=== PATIENT | male | born 1945 | race African-American/Black ===

== ENCOUNTER 2017-07-16 23:43 | Emergency (ER) | payer OTHER, MEDICAID ==
[~2017-07-16] VITALS: Ht 165.1 cm; Wt 70.0 kg
[2017-07-16 23:47] VITALS: BP 207/98; PULSE 101; RESP 18; TEMP 97.5; O2SAT 99
[2017-07-17] MEDS ORDERED: GLIP10TA6 PO (00:25)
[2017-07-17] MEDS ORDERED: OMEP40CA2 (00:25)
[2017-07-17] MEDS ORDERED: AMLO2.5T PO (00:25)
[2017-07-17] MEDS ORDERED: ATOR40TA16 PO (00:25)
[2017-07-17] MEDS ORDERED: ASPI81CH7 CHEW (00:25)
[2017-07-17] MEDS ORDERED: AMMO12LO TOPICAL (00:25)
[2017-07-17] MEDS ORDERED: FLUT50SP EACH NARE (00:25)
[2017-07-17] MEDS ORDERED: METF500T PO (00:25)
[2017-07-17] MEDS ORDERED: CLOP75TA PO (00:25)
--- NOTE | 2017-07-17 01:00 | RADRPT ---
EXAM DATE/TIME: 07/17/2017 00:41 [place] COMPARISON: No previous studies available for comparison. INDICATIONS : Neck pain for two months. No known injury. MEDICAL HISTORY : None. SURGICAL HISTORY : None. ENCOUNTER: Initial ACUITY: 2 months PAIN SCORE: 8/10 LOCATION: cevical spine. FINDINGS: 4 views of cervical spine show straightening of the cervical spine. Disc space narrowing and anterior osteophyte production at C4-C5, C5-C6, and C6-C7. No fracture or dislocation. Paraspinal soft tissue s are unremarkable. Carotid artery atherosclerotic calcifications are noted. CONCLUSION: 1. Degenerative changes. 2. Carotid artery atherosclerotic calcifications. Jadon Flores Jr., MD on July 17, 2017 at 0:58 Board Certified Radiologist. This report was verified electronically.
[2017-07-17] MEDS ORDERED: NORC5TAB PO (01:12)
[2017-07-17] MEDS ORDERED: CYCL10TA PO (01:12)
[2017-07-17] MEDS ORDERED: CYCLOBENZAPRINE HCL 10 MG TAB PO ONE (01:15)
[2017-07-17] MEDS ORDERED: ACETAMINOPHEN/HYDROcodone 325 MG/5 MG TAB PO ONE (01:15)
--- NOTE | 2017-07-17 01:21 | PD ---
HPI Chief Complaint: Back/ Neck Pain or Injury Time Seen by Provider: 00:26 Travel History International Travel<30 days: No Contact w/Intl Traveler<30days: No Traveled to known affect area: No History of Present Illness HPI 71-year-old black male presents emergency department we will complains of neck pain. He states that he feels that he probably slept wrong on his neck about a month ago. He saw his doctor approximately 3 weeks ago regarding this. She had placed him on an anti-inflammatory which has not helped. He states the pain is becoming more intense. Worse with bending and movement. He denies any focal numbness, tingling or weakness. He has had no recent trauma or illness. Symptoms are moderate. No alleviating factor. PFSH Past Medical History High Cholesterol: Yes Diabetes: Yes Patient Takes Glucophage: Yes (METFORMIN) Hypertension: Yes Tetanus Vaccination: < 5 Years Past Surgical History Narrative Surgical Lower leg stents for PVD Other Surgery: Yes ("LEG SURGERY") Social History Alcohol Use: Yes Tobacco Use: No Substance Use: No Allergies-Medications (Allergen,Severity, Reaction): Coded Allergies: lisinopril (Unverified Adverse Reaction, Severe, Swelling, 07/16/17) losartan (Unverified Adverse Reaction, Intermediate, Diarrhea, 07/16/17) Uncoded Allergies: ANTIFUNGAL CREAM (Adverse Reaction, Intermediate, Rash, 07/16/17) Reported Meds & Prescriptions Reported Meds & Active Scripts Active Flexeril (Cyclobenzaprine HCl) 10 Mg Tab 10 Mg PO TID [place] (Hydrocodone-Acetaminophen) 5 Mg-325 Mg Tab 1 Tab PO Q8HR PRN 3 Days Reported Fluticasone Nasal [place] 50 Mcg/Act Naspr 50 Mcg EACH NARE BID 50 mcg/spray Ammonium Lactate (Lactic Acid (Ammonium Lactate)) 12% Lotn 1 Applic TOPICAL ONCE Aspirin Children's (Aspirin) 81 Mg Chew 81 Mg CHEW DAILY Clopidogrel (Clopidogrel Bisulfate) 75 Mg Tab 75 Mg PO DAILY Amlodipine (Amlodipine Besylate) 2.5 Mg Tab 2.5 Mg PO DAILY Atorvastatin (Atorvastatin Calcium) 40 Mg Tab 40 Mg PO HS Metformin (Metformin HCl) 500 Mg Tab 500 Mg PO BIDPC Glipizide 10 Mg Tab 10 Mg PO BIDAC Take 30 minutes before a meal Omeprazole 40 Mg Cap 40 Mg DAILY Review of Systems Except as stated in HPI: all other systems reviewed are Neg Physical Exam Narrative GENERAL: Well-developed, well-nourished in no apparent distress. Nontoxic appearing. HEAD: Normocephalic, atraumatic. EYES: Pupils equal round and reactive. Extraocular motions intact. No scleral icterus. No injection or drainage. ENT: Nose clear. Throat without erythema, tonsillar hypertrophy or exudate. Uvula midline. Airway patent. NECK: Trachea midline. Supple, patient has right paraspinal muscle tenderness with mild spasm. Slight decreased range of motion due to pain. No central bony tenderness.. CARDIOVASCULAR: Regular rate and rhythm without murmurs, gallops, or rubs. RESPIRATORY: Clear to auscultation. Breath sounds equal bilaterally. No wheezes , rales, or rhonchi. GASTROINTESTINAL: Abdomen soft, non-tender, nondistended. No hepato-splenomegaly , or palpable masses. No guarding. EXTREMITIES: No clubbing, cyanosis, or edema. No joint tenderness. BACK: Nontender without deformity. No flank tenderness. NEUROLOGICAL: Awake, alert and oriented x 3 .Cranial nerves grossly intact. Motor and sensory grossly within normal limits. Normal speech. Data Data Last Documented VS Vital Signs Date Time Temp Pulse Resp B/P (MAP) Pulse Ox O2 Delivery O2 Flow Rate FiO2 07/17/17 00:08 20 07/16/17 23:47 97.5 101 207/98 (134) 99 Orders Orders Spine, Cervical - Ltd (Ap&Lat) (07/17/17 00:32) Acetamin-Hydrocod 325-5 Mg ([place] 5-325 (07/17/17 01:15) Cyclobenzaprine (Flexeril) (07/17/17 01:15) [facility] Medical Decision Making Medical Screen Exam Complete: Yes Emergency Medical Condition: Yes Medical Record Reviewed: Yes Interpretation(s) Last 24 hours Impressions Cervical Spine X-Ray 07/17/17 0032 Signed Impressions: Service Date/Time: July 00:41 - CONCLUSION: 1. Degenerative changes. 2. Carotid artery atherosclerotic calcifications. Jadon Flores Jr., MD Differential Diagnosis MDM: High Differential diagnoses: Carotid artery dissection,Fracture, sprain, strain, HNP , nerve or vascular injury Narrative Course X-ray shows degenerative changes as well as calcifications in his carotid arteries. Patient is made aware the x-ray findings including the calcifications. Patient has known PVD. Patient was given [place] 5 mg and Flexeril 10 mg. This is acute cervical strain with spasm, carotid artery calcifications Diagnosis Primary Impression: Acute cervical strain with spasm Additional Impression: Carotid artery calcifications Patient Instructions: General Instructions, Narcotic given in the ED Additional Instructions: Rest. Ice or heat whichever seems to help the best. Flexeril and [place]. Follow-up with a primary care doctor in 2-3 days. Consider physical therapy Return to the ER for emergencies. Med/Other Pt SpecificInfo: Prescription(s) given Scripts Cyclobenzaprine (Flexeril) 10 Mg Tab 10 MG PO TID for Muscle Spasm, #21 TAB 0 Refills Prov: Nikhil Felton MD 07/17/17 Hydrocodone-Acetaminophen ([place]) 5 Mg-325 Mg Tab 1 TAB PO Q8HR Y for PAIN for 3 Days, TAB 0 Refills Prov: Nikhil Felton MD 07/17/17 Disposition: 01 DISCHARGE HOME Condition: Stable [place] Jul 17, 2017 01:21
[2017-07-17 01:22] VITALS: BP 196/93; PULSE 93; RESP 20; O2SAT 99
== END 2017-07-17 01:59 | disposition home or self-care (01) ==
LOC: NEPD 23:43
DX: S16.1XXA Strain of muscle, fascia and tendon at neck level, initial encounter (principal); M62.838 Other muscle spasm; I65.29 Occlusion and stenosis of unspecified carotid artery; I73.9 Peripheral vascular disease, unspecified; E11.9 Type 2 diabetes mellitus without complications; I10 Essential (primary) hypertension; E78.00 Pure hypercholesterolemia, unspecified; Z79.84 Long term (current) use of oral hypoglycemic drugs; X58.XXXA Exposure to other specified factors, initial encounter
CPT/HCPCS: 72040; 99283

== ENCOUNTER 2017-10-03 21:08 | Inpatient (IN) | payer OTHER, MEDICAID, MEDICARE ==
[~2017-10-03] VITALS: Ht 165.1 cm; Wt 70.5 kg
[~2017-10-03 21:08] MED LIST: AMLO2.5T PO; AMMO12LO TOPICAL; ASPI81CH7 CHEW; ATOR40TA16 PO; CLOP75TA PO; CYCL10TA PO; FLUT50SP EACH NARE; GLIP10TA6 PO; METF500T PO; NORC5TAB PO; OMEP40CA2
[2017-10-03 21:12] VITALS: BP 169/79; PULSE 91; RESP 20; TEMP 98; O2SAT 100
[2017-10-03 21:19] VITALS: BP 182/86; PULSE 87; RESP 18; O2SAT 99
[2017-10-03 21:25] VITALS: O2SAT 99
--- NOTE | 2017-10-03 21:29 | PD ---
HPI Chief Complaint: Neuro Symptoms/ Deficits Time Seen by Provider: 21:24 Travel History International Travel<30 days: No Contact w/Intl Traveler<30days: No Traveled to known affect area: No History of Present Illness HPI 72-year-old male patient with history of previous carotid stenosis, right femoral stent, hypertension, presents to the ER today because he started having slurring of his speech, left facial droop, and limping on his left side according to his today. She noticed that at 11 AM it seemed to have gotten better and then got worse again this evening according to her grandson. He denies issues currently, denies any headaches, chest pains, trouble breathing , or other issues. Modifying Factors: None Associated Signs & Symptoms: Limping, facial droop, slurred speech Risk Factors: Hypertension, carotid stenosis PFSH Past Medical History High Cholesterol: Yes Diabetes: Yes Patient Takes Glucophage: No Diminished Hearing: No Hypertension: Yes Immunizations Current: Yes Tetanus Vaccination: Unknown Influenza Vaccination: Yes Past Surgical History Other Surgery: Yes ("LEG SURGERY") Social History Alcohol Use: Yes Tobacco Use: No Substance Use: No Allergies-Medications (Allergen,Severity, Reaction): Coded Allergies: lisinopril (Unverified Adverse Reaction, Severe, Swelling, 10/03/17) losartan (Unverified Adverse Reaction, Intermediate, Diarrhea, 10/03/17) Uncoded Allergies: ANTIFUNGAL CREAM (Adverse Reaction, Intermediate, Rash, 07/16/17) Reported Meds & Prescriptions Reported Meds & Active Scripts Active Reported Fluticasone Nasal [place] 50 Mcg/Act Naspr 50 Mcg EACH NARE BID 50 mcg/spray Ammonium Lactate (Lactic Acid (Ammonium Lactate)) 12% Lotn 1 Applic TOPICAL ONCE Aspirin Children's (Aspirin) 81 Mg Chew 81 Mg CHEW DAILY Clopidogrel (Clopidogrel Bisulfate) 75 Mg Tab 75 Mg PO DAILY Amlodipine (Amlodipine Besylate) 2.5 Mg Tab 2.5 Mg PO DAILY Atorvastatin (Atorvastatin Calcium) 40 Mg Tab 40 Mg PO HS Metformin (Metformin HCl) 500 Mg Tab 500 Mg PO BIDPC Glipizide 10 Mg Tab 10 Mg PO BIDAC Take 30 minutes before a meal Omeprazole 40 Mg Cap 40 Mg DAILY Review of Systems ROS Limitations: Poor Historian Except as stated in HPI: all other systems reviewed are Neg Physical Exam Narrative GENERAL: Well-developed elderly -Thai male patient currently and mild distress. Awake and oriented 3. SKIN: Focused skin assessment warm/dry. HEAD: Atraumatic. Normocephalic. EYES: Pupils equal and round. No scleral icterus. No injection or drainage. ENT: No nasal bleeding or discharge. Mucous membranes pink and moist. NECK: Trachea midline. No JVD. CARDIOVASCULAR: Regular rate and rhythm. No murmur appreciated. RESPIRATORY: No accessory muscle use. Clear to auscultation. Breath sounds equal bilaterally. GASTROINTESTINAL: Abdomen soft, non-tender, nondistended. Hepatic and splenic margins not palpable. MUSCULOSKELETAL: No obvious deformities. No clubbing. No cyanosis. No edema. NEUROLOGICAL: Awake and alert. Left facial droop, left leg weakness, no obvious upper extremity drift. PSYCHIATRIC: Appropriate mood and affect; insight and judgment normal. Data Data Last Documented VS Vital Signs Date Time Temp Pulse Resp B/P (MAP) Pulse Ox O2 Delivery O2 Flow Rate FiO2 10/03/17 22:28 88 17 191/88 (122) 97 Room Air 10/03/17 21:12 98.0 Orders Orders Electrocardiogram (10/03/17 21:24) Complete Blood Count With Diff (10/03/17 21:24) Comprehensive Metabolic Panel (10/03/17 21:24) Prothrombin Time / Inr (Pt) (10/03/17 21:24) Act Partial Throm Time (Ptt) (10/03/17 21:24) Chest, Single Ap (10/03/17 21:24) Ct Brain W/O Iv Contrast(Rout) (10/03/17 21:24) Blood Glucose (10/03/17 21:24) Ecg Monitoring (10/03/17 21:24) Iv Access Insert/Monitor (10/03/17 21:24) Oximetry (10/03/17 21:24) Sodium Chloride 0.9% Flush (Ns Flush) (10/03/17 21:30) Aspirin (Aspirin) (10/03/17 21:45) Labs Laboratory Tests Test 10/03/17 21:28 White Blood Count 8.7 TH/MM3 Red Blood Count 4.39 MIL/MM3 Hemoglobin 13.1 GM/DL Hematocrit 38.3 % Mean Corpuscular Volume 87.3 FL Mean Corpuscular Hemoglobin 29.9 PG Mean Corpuscular Hemoglobin Concent 34.3 % Red Cell Distribution Width 15.6 % Platelet Count 262 TH/MM3 Mean Platelet Volume 8.1 FL Neutrophils (%) (Auto) 68.8 % Lymphocytes (%) (Auto) 22.4 % Monocytes (%) (Auto) 7.1 % Eosinophils (%) (Auto) 1.4 % Basophils (%) (Auto) 0.3 % Neutrophils # (Auto) 6.0 TH/MM3 Lymphocytes # (Auto) 2.0 TH/MM3 Monocytes # (Auto) 0.6 TH/MM3 Eosinophils # (Auto) 0.1 TH/MM3 Basophils # (Auto) 0.0 TH/MM3 CBC Comment DIFF FINAL Differential Comment Prothrombin Time 10.7 SEC Prothromb Time International Ratio 1.1 RATIO Activated Partial Thromboplast Time 27.5 SEC Blood Urea Nitrogen 18 MG/DL Creatinine 0.93 MG/DL Random Glucose 85 MG/DL Total Protein 7.6 GM/DL Albumin 3.9 GM/DL Calcium Level 9.2 MG/DL Alkaline Phosphatase 114 U/L Aspartate Amino Transf (AST/SGOT) 13 U/L Alanine Aminotransferase (ALT/SGPT) 26 U/L Total Bilirubin 0.3 MG/DL Sodium Level 138 MEQ/L Potassium Level 3.6 MEQ/L Chloride Level 102 MEQ/L Carbon Dioxide Level 28.0 MEQ/L Anion Gap 8 MEQ/L Estimat Glomerular Filtration Rate 97 ML/MIN MDM Medical Decision Making Medical Screen Exam Complete: Yes Emergency Medical Condition: Yes Medical Record Reviewed: Yes Interpretation(s) EKG shows normal sinus rhythm at a rate of 86 bpm. LVH. No signs of acute ST elevations or depressions. Laboratory Tests Test 10/03/17 21:28 Red Blood Count 4.39 MIL/MM3 (4.50-5.90) Hematocrit 38.3 % (39.0-51.0) Aspartate Amino Transf (AST/SGOT) 13 U/L (15-37) Last [address] 10/03/172123 Signed Impressions: CONCLUSION: 1. No acute hemorrhage or mass effect. 2. 8 mm low-attenuation area in the left basal ganglia most consistent with an area of infarction which may be acute to subacute. This could be further evalu ated with MRI imaging. 3. Atrophy and chronic small vessel ischemic changes. Chest X-Ray 10/03/172123 Signed Impressions: CONCLUSION: No acute cardiopulmonary abnormality is identified. Differential Diagnosis CVA versus Hernandez's palsy versus other acute intracranial processes versus electrolyte abnormalities Narrative Course Patient has significant left-sided symptoms and facial droop concerning for CVA. CAT scan is also indicative of CVA. At this point, patient had been given aspirin. He is well beyond TPA window. Case was discussed with Dr. Yun for admission to hospitalist service. Diagnosis Primary Impression: CVA (cerebral vascular accident) Admitting Information Admitting Physician Requests: it Gracie Najera MD Oct 03, 2017 21:29
[2017-10-03] MEDS ORDERED: SODIUM CHLORIDE 0.9% FLUSH 10 ML FLUSH IV FLUSH PRN (21:30)
--- NOTE | 2017-10-03 21:41 | RADRPT ---
EXAM DATE: 10/03/2017 9:36 PM EDT AGE/SEX: 72 years / Male INDICATIONS: Generalized weakness, slurred speech, hallucinating. CLINICAL DATA: This is the patient's initial encounter. Patient reports that signs and symptoms have been present for 1 day and indicates a pain score of 0/10. MEDICAL/SURGICAL HISTORY: Hypertension. Diabetes. None. RADIATION DOSE: 56.35 CTDI (mGy) COMPARISON: No prior [place] exams available for comparison. TECHNIQUE: CT of the head without contrast. Using automated exposure control and adjustment of the mA and/or kV according to patient size, radiation dose was kept as low as reasonably achievable to ob tain optimal diagnostic quality images. FINDINGS: Cerebrum: The ventricles are normal for age with mild to moderate atrophic change. Chronic small ves bernadine ischemic changes are noted with lucency in the deep white matter. There is an area of decreased a ttenuation in the left basal ganglia as well measuring up to approximately 8 to 9 mm. No evidence of midline shift, mass lesion, hemorrhage or acute infarction. No extraaxial fluid collections are seen . Posterior Fossa: The cerebellum and brainstem are intact. The 4th ventricle is midline. The cerebe llopontine angle is unremarkable. Extracranial: The visualized portion of the orbits is intact. Skull: The calvaria is intact. No evidence of skull fracture. CONCLUSION: 1. No acute hemorrhage or mass effect. 2. 8 mm low-attenuation area in the left basal ganglia most consistent with an area of infarction wh ich may be acute to subacute. This could be further evaluated with MRI imaging. 3. Atrophy and chronic small vessel ischemic changes. Electronically signed by: Corby Pham MD 10/03/2017 9:40 PM EDT
[2017-10-03] MEDS ORDERED: ASPIRIN 325 MG TAB PO ONE (21:45)
--- NOTE | 2017-10-03 21:50 | RADRPT ---
EXAM DATE: 10/03/2017 9:47 PM EDT AGE/SEX: 72 years / Male INDICATIONS: Palpitations. CLINICAL DATA: This is the patient's initial encounter. Patient reports that signs and symptoms have been present for 2 days and indicates a pain score of 0/10. MEDICAL/SURGICAL HISTORY: Diabetes mellitus type II. None. COMPARISON: No prior [place] exams available for comparison. FINDINGS: Portable AP view of the chest demonstrate a normal-sized cardiac silhouette with calcification of the aorta. EKG lines overlie the patient. There is elevation of the right hemidiaphragm. No effusion, co nsolidation, or pneumothorax is identified. Bones and soft tissues demonstrate no acute finding. CONCLUSION: No acute cardiopulmonary abnormality is identified. Electronically signed by: Lavelle Ordonez MD 10/03/2017 9:49 PM EDT
[2017-10-03 22:03] LABS: INTERNATIONAL NORMALIZED RATIO 1.1 RATIO; PROTHROMBIN TIME - PATIENT 10.7 SEC (9.8-11.6)
[2017-10-03 22:06] LABS: ALBUMIN 3.9 GM/DL (3.4-5.0); AST (GOT) 13 U/L (15-37); BLOOD UREA NITROGEN 18 MG/DL (7-18); CALCIUM 9.2 MG/DL (8.5-10.1); CHLORIDE 102 MEQ/L (98-107); CREATININE 0.93 MG/DL (0.60-1.30); GLOMERULAR FILTRATION RATE 97 ML/MIN (>89); GLUCOSE,RANDOM 85 MG/DL (74-106); SODIUM (NA) 138 MEQ/L (136-145)
[2017-10-03 22:09] LABS: ALKALINE PHOSPHATASE 114 U/L (45-117); ALT (GPT) 26 U/L (12-78); TOTAL BILIRUBIN ADULT 0.3 MG/DL (0.2-1.0); TOTAL PROTEIN 7.6 GM/DL (6.4-8.2)
[2017-10-03 22:21] LABS: BASOPHIL % 0.3 % (0.0-2.0); EOSINOPHIL # 0.1 TH/MM3 (0-0.4); EOSINOPHIL % 1.4 % (0.0-4.0); HEMATOCRIT 38.3 % (39.0-51.0); HEMOGLOBIN 13.1 GM/DL (13.0-17.0); LYMPH % 22.4 % (9.0-44.0); MEAN CELL VOLUME 87.3 FL (80.0-100.0); MEAN CORPUSCULAR HEMOGLOBIN 29.9 PG (27.0-34.0); MEAN CORPUSCULAR HGB CONC 34.3 % (32.0-36.0); MEAN PLATELET VOLUME 8.1 FL (7.0-11.0); MONO % 7.1 % (0.0-8.0); MONOCYTE # 0.6 TH/MM3 (0-0.9); NEUT % 68.8 % (16.0-70.0); PLATELET COUNT 262 TH/MM3 (150-450); RED BLOOD COUNT 4.39 MIL/MM3 (4.50-5.90); RED CELL DISTRIBUTION WIDTH 15.6 % (11.6-17.2); WHITE BLOOD COUNT 8.7 TH/MM3 (4.0-11.0)
[2017-10-03 22:28] VITALS: BP 191/88; PULSE 88; RESP 17; O2SAT 97
[2017-10-03 23:06] VITALS: BP 172/88; PULSE 87; RESP 16; O2SAT 98
[2017-10-04] VITALS (8 sets, daily range): BP systolic 165–183; BP diastolic 81–89; PULSE 78–88; RESP 18–20; TEMP 97.3–98.4; O2SAT 98–100
[2017-10-04] MEDS ORDERED: GLUCAGON 1 MG/ML VIAL OTHER PRN (01:00)
[2017-10-04] MEDS ORDERED: DEXTROSE 50% IN WATER 50 ML VIAL(D50) IV PUSH PRN (01:00)
[2017-10-04] MEDS ORDERED: SODIUM CHLORIDE 0.9% FLUSH 10 ML FLUSH IV FLUSH PRN (01:00)
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
[2017-10-04] MEDS: SODIUM CHLOR 0.9% 1000 ML INJ 1,000 ML IV SCH ×3 (04:28→19:44)
[2017-10-04 07:28] LABS: AUTOMATED NEUTROPHIL # 3.3 TH/MM3 (1.8-7.7); BASOPHIL % 0.4 % (0.0-2.0); EOSINOPHIL # 0.2 TH/MM3 (0-0.4); EOSINOPHIL % 3.1 % (0.0-4.0); HEMATOCRIT 37.4 % (39.0-51.0); HEMOGLOBIN 12.8 GM/DL (13.0-17.0); LYMPH % 36.3 % (9.0-44.0); LYMPHOCYTE # 2.4 TH/MM3 (1.0-4.8); MEAN CELL VOLUME 87.3 FL (80.0-100.0); MEAN CORPUSCULAR HEMOGLOBIN 29.8 PG (27.0-34.0); MEAN CORPUSCULAR HGB CONC 34.2 % (32.0-36.0); MEAN PLATELET VOLUME 8.3 FL (7.0-11.0); MONO % 9.4 % (0.0-8.0); MONOCYTE # 0.6 TH/MM3 (0-0.9); NEUT % 50.8 % (16.0-70.0); PLATELET COUNT 249 TH/MM3 (150-450); RED BLOOD COUNT 4.28 MIL/MM3 (4.50-5.90); RED CELL DISTRIBUTION WIDTH 15.5 % (11.6-17.2); WHITE BLOOD COUNT 6.6 TH/MM3 (4.0-11.0)
[2017-10-04] MEDS: PANTOPRAZOLE SOD 40 MG DELAYED RELEASE TAB PO SCH (07:37)
[2017-10-04] MEDS: HEPARIN SODIUM - SQ 10,000 UNITS/ML VIAL SQ SCH ×2 (07:38→20:55)
[2017-10-04] MEDS: ASPIRIN 325 MG TAB PO SCH (07:38)
[2017-10-04] MEDS: INSULIN ASPART SUPPLEMENTAL SCALE SQ SCH ×4 (07:38→21:51)
[2017-10-04] MEDS: CLOPIDOGREL 75 MG TAB PO SCH (07:38)
[2017-10-04] MEDS: SODIUM CHLORIDE 0.9% FLUSH 10 ML FLUSH IV FLUSH SCH ×2 (07:39→20:55)
[2017-10-04 07:47] LABS: BICARBONATE 30.5 MEQ/L (21.0-32.0); BLOOD UREA NITROGEN 16 MG/DL (7-18); CALCIUM 8.9 MG/DL (8.5-10.1); CHLORIDE 101 MEQ/L (98-107); CREATININE 0.85 MG/DL (0.60-1.30); GLOMERULAR FILTRATION RATE 108 ML/MIN (>89); GLUCOSE,RANDOM 115 MG/DL (74-106); SODIUM (NA) 138 MEQ/L (136-145)
--- NOTE | 2017-10-04 09:57 | RADRPT ---
EXAM DATE: 10/04/2017 9:49 AM EDT AGE/SEX: 72 years / Male INDICATIONS: Generalized weakness. Slurred speech. CLINICAL DATA: This is the patient's initial encounter. Patient reports that signs and symptoms have been present for 1 day and indicates a pain score of 0/10. MEDICAL/SURGICAL HISTORY: Hypertension. Diabetes. . COMPARISON: No prior [place] exams available for comparison. No external comparison. VELOCITY PARAMETERS: ICA/CCA Ratio: Right 0.8 , Left 0.7 ICA: Right 54.1 cm/sec, Left 55.2 cm/sec CCA: Right 67.8 cm/sec, Left 79.9 cm/sec ECA: Right 67.2 cm/sec, Left 98.7 cm/sec Vertebral: Right 52.6 cm/sec antegrade, Left 40.4 cm/sec antegrade FINDINGS: Right Carotid: No significant stenosis is visualized. The waveforms are within normal limits. Left Carotid: No significant stenosis is visualized. The waveforms are within normal limits. Other: None. CONCLUSION: 1. Right Internal Carotid Artery: No significant stenosis visualized. 2. Left Internal Carotid Artery: No significant stenosis visualized. Electronically signed by: Glory Lambert MD 10/04/2017 9:55 AM EDT
--- NOTE | 2017-10-04 10:13 | RADRPT ---
EXAM DATE: 10/04/2017 9:56 AM EDT AGE/SEX: 72 years / Male INDICATIONS: CVA. Left sided weakness. CLINICAL DATA: This is the patient's initial encounter. Patient reports that signs and symptoms have been present for 1 day and indicates a pain score of 0/10. MEDICAL/SURGICAL HISTORY: Diabetes mellitus type II. Hypertension. . Biliary stent. [place] [facility] [place]. . TECHNIQUE: 3D [id number] MRA was performed. Source images, multiplanar STS MIP, and 3D volum e MIP reconstructions were reviewed. FINDINGS: There is excellent visualization of the major intracranial arteries out to the second-order branch ve ssels. There is no evidence for aneurysm, vessel truncation or stenosis, and no evidence for vascula r malformation. CONCLUSION: 1. No abnormality seen on this exam. Electronically signed by: Glory Lambert MD 10/04/2017 10:12 AM EDT
--- NOTE | 2017-10-04 10:15 | RADRPT ---
EXAM DATE: 10/04/2017 9:56 AM EDT AGE/SEX: 72 years / Male INDICATIONS: Confusion. Left sided weakness. CLINICAL DATA: This is the patient's initial encounter. Patient reports that signs and symptoms have been present for 1 day and indicates a pain score of 0/10. MEDICAL/SURGICAL HISTORY: Diabetes mellitus type II. Hypertension. . Biliary stent. COMPARISON: C, MRA BRAIN W/O CONTRAST, 10/04/2017. . TECHNIQUE: Multiplanar, multisequence examination of the brain was performed without contrast. FINDINGS: Motion artifact identified on the exam. Cerebrum: There is an area of focal restriction identified within the left thalamus consistent with an acute infarct. There is mild diffuse white matter atrophic change. White Matter: Periventricular white matter intensity and abnormal focal increased T2 signal identifi ed within the left thalamus. Posterior Fossa: The cerebellum and brainstem are intact. The 4th ventricle is midline. The cerebel lopontine angle is unremarkable. The cerebellar tonsils are normal in position. Diffusion Imaging: Focal restricted diffusion identified within the left thalamus. Extracranial: The visualized portions of the orbits and paranasal sinuses are unremarkable. CONCLUSION: 1. Evidence of acute infarct involving the left thalamus. Electronically signed by: Glory Lambert MD 10/04/2017 10:14 AM EDT
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
--- NOTE | 2017-10-04 15:09 | EKG ---
Date Performed: 10/03/2017 Time Performed: 21:31:11 PTAGE: 72 years EKG: Sinus rhythm Borderline left axis deviation Poor R-wave progression Cannot exclude septal myocardial infarction o f indeterminate age vs. normal variant LVH by voltage NO PREVIOUS TRACING DOCTOR: Lewis Ribeiro Interpretating Date/Time 10/04/2017 15:08:06
[2017-10-04] MEDS: ATORVASTATIN 40 MG TAB PO SCH (20:50)
[2017-10-05] VITALS (9 sets, daily range): BP systolic 156–190; BP diastolic 77–98; PULSE 71–80; RESP 17–19; TEMP 97.3–98.1; O2SAT 97–100
[2017-10-05] MEDS ORDERED: POTASSIUM CHLORIDE 20 MEQ CONTROLLED RELEASE TAB PO ONE (00:30)
[2017-10-05] MEDS: ASPIRIN 325 MG TAB PO SCH (07:51)
[2017-10-05] MEDS: PANTOPRAZOLE SOD 40 MG DELAYED RELEASE TAB PO SCH (07:51)
[2017-10-05] MEDS: CLOPIDOGREL 75 MG TAB PO SCH (07:51)
[2017-10-05] MEDS: SODIUM CHLOR 0.9% 1000 ML INJ 1,000 ML IV SCH ×2 (07:52→22:39)
[2017-10-05] MEDS: SODIUM CHLORIDE 0.9% FLUSH 10 ML FLUSH IV FLUSH SCH ×2 (07:52→20:38)
[2017-10-05] MEDS: HEPARIN SODIUM - SQ 10,000 UNITS/ML VIAL SQ SCH ×2 (07:52→20:39)
[2017-10-05] MEDS: INSULIN ASPART SUPPLEMENTAL SCALE SQ SCH ×4 (07:52→20:39)
[2017-10-05 08:41] LABS: CHOLESTEROL/ HDL RATIO 2.28 RATIO; HDL CHOLESTEROL 43.7 MG/DL (40.0-60.0)
[2017-10-05 08:48] LABS: BICARBONATE 29.4 MEQ/L (21.0-32.0); CALCIUM 8.5 MG/DL (8.5-10.1); CREATININE 0.77 MG/DL (0.60-1.30); MAGNESIUM 1.5 MG/DL (1.5-2.5)
[2017-10-05 09:53] LABS: HEMOGLOBIN A1C 6.7 % (4.3-6.0)
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
--- NOTE | 2017-10-05 13:27 | HHI.FF ---
Face to Face Verification Diagnosis: (1) CVA (cerebral vascular accident) (2) Expressive aphasia (3) Left hemiplegia Physical Therapy Order: Evaluate and Treat, Improve ambulation, Strength and gait training Occupational Therapy Order: Evaluate and Treat, Gross motor coordination, Fine motor coordination Speech Therapy Order: To Improve: Speech and communication skills, Cognitive skills I have seen patient Daniel Jimenez on 10/05/17. My clinical findings support the need for the requested home health care services because: Ltd mobility - disease progression Deconditioned w/ increased weakness Limited ability to care for self High risk of falls I certify that my clinical findings support that this patient is homebound because: Unsteady gait/balance Unsafe to leave home unassisted Unable to use public transportation Tevin Joyner MD Oct 05, 2017 13:27
[2017-10-05] MEDS ORDERED: cloNIDine HCL 0.1 MG TAB PO PRN (16:45)
[2017-10-05] MEDS: ATORVASTATIN 40 MG TAB PO SCH (20:38)
[2017-10-06] VITALS (11 sets, daily range): BP systolic 155–184; BP diastolic 74–98; PULSE 64–81; RESP 17–20; TEMP 97.8–99.1; O2SAT 96–100
[2017-10-06] MEDS: HEPARIN SODIUM - SQ 10,000 UNITS/ML VIAL SQ SCH ×2 (07:51→20:25)
[2017-10-06] MEDS: ASPIRIN 325 MG TAB PO SCH (07:51)
[2017-10-06] MEDS: PANTOPRAZOLE SOD 40 MG DELAYED RELEASE TAB PO SCH (07:51)
[2017-10-06] MEDS: CLOPIDOGREL 75 MG TAB PO SCH (07:51)
[2017-10-06] MEDS: SODIUM CHLORIDE 0.9% FLUSH 10 ML FLUSH IV FLUSH SCH ×2 (07:52→20:25)
[2017-10-06] MEDS: INSULIN ASPART SUPPLEMENTAL SCALE SQ SCH ×4 (07:52→20:26)
--- NOTE | 2017-10-06 08:29 | HHI.PR ---
Subjective Remarks in no acute distress. denies pain. no new complaints. hoping that he could go home today. Objective Vitals Vital Signs Date Time Temp Pulse Resp B/P (MAP) Pulse Ox O2 Delivery O2 Flow Rate FiO2 10/06/17 08:00 98.1 77 18 177/92 (120) 99 10/06/17 05:00 98.0 80 20 169/98 (121) 99 10/06/17 04:00 74 10/06/17 00:29 97.9 75 17 184/80 (114) 100 10/06/17 00:00 74 10/05/17 22:00 98.0 80 17 190/98 (128) 100 10/05/17 20:00 75 10/05/17 16:00 79 10/05/17 16:00 98.1 75 18 182/88 (119) 99 10/05/17 12:00 97.6 76 18 156/77 (103) 100 10/05/17 12:00 75 I/O 10/05/17 10/05/17 10/05/17 10/06/17 10/06/17 10/06/17 07:00 15:00 23:00 07:00 15:00 23:00 Intake Total 1000 ml 500 ml 450 ml Output Total 0 ml 400 ml Balance 1000 ml 500 ml 50 ml Intake Oral 500 ml 450 ml IV Total 1000 ml Output Urine Total 0 ml 400 ml # Voids 6 3 # Bowel Movements 0 0 Result Diagram: 10/04/17 0539 10/05/17 0524 Imaging Last Impressions Head Magnetic Resonance Angiography 10/04/17 Signed Impressions: CONCLUSION: 1. No abnormality seen on this exam. Carotid Artery Ultrasound 10/04/17 Signed Impressions: CONCLUSION: 1. Right Internal Carotid Artery: No significant stenosis visualized. 2. Left Internal Carotid Artery: No significant stenosis visualized. Brain MRI 10/04/17 Signed Impressions: CONCLUSION: 1. Evidence of acute infarct involving the left thalamus. Head CT 10/03/172123 Signed Impressions: CONCLUSION: 1. No acute hemorrhage or mass effect. 2. 8 mm low-attenuation area in the left basal ganglia most consistent with an area of infarction which may be acute to subacute. This could be further evalu ated with MRI imaging. 3. Atrophy and chronic small vessel ischemic changes. Chest X-Ray 10/03/172123 Signed Impressions: CONCLUSION: No acute cardiopulmonary abnormality is identified. Objective Remarks GENERAL: This is a well-nourished, well-developed patient, in no apparent distress. CARDIOVASCULAR: Regular rate and regular rhythm without murmurs, gallops, or rubs. RESPIRATORY: Clear to auscultation. Breath sounds equal bilaterally. No wheezes , rales, or rhonchi. GASTROINTESTINAL: Abdomen soft, non-tender, nondistended. Normal, active bowel sounds MUSCULOSKELETAL: Extremities without clubbing, cyanosis, or edema. NEURO: Alert & Oriented x4 to person, place, time, situation. Moves all ext x4 Procedures None Medications and IVs Inpatient Medications Aspirin (Aspirin) 325 mg DAILY PO Last administered on 10/06/17 07:51; Start at 09:00 Atorvastatin Calcium (Lipitor) 40 mg HS PO Last administered on 10/05/17at 20:38 ; Start 10/04/17 at 21:00 Clonidine (Catapres) 0.1 mg Q6H PRN PO SBP>200, DBP>100; Start 10/05/17 at 16:45 Clopidogrel Bisulfate (Plavix) 75 mg DAILY PO Last administered on 10/06/17 07: 51; Start 10/04/17 at 09:00 Dextrose (D50w (Vial) Inj) 50 ml UNSCH PRN IV PUSH HYPOGLYCEMIA-SEE COMMENTS; Start 10/04/17 at 01:00 Glucagon (Glucagon Inj) 1 mg UNSCH PRN OTHER HYPOGLYCEMIA-SEE COMMENTS; Start 10/04/17 at 01:00 Heparin Sodium (Porcine) (Heparin Inj) 5,000 units Q12HR SQ Last administered on 10/06/17 07:51; Start 10/04/17 at 09:00 Insulin Aspart (NovoLOG SUPPLEMENTAL SCALE) 1 ACHS SQ Last administered on 07:52; Start 10/04/17 at 08:00 Pantoprazole Sodium (Protonix) 40 mg DAILY PO Last administered on 10/06/17 07: 51; Start 10/04/17 at 09:00 Potassium Chloride (KCl) 20 meq ONCE ONCE PO Last administered on 10/05/17at 00: 35; Start 10/05/17 at 00:30; Stop 10/05/17 at 00:31; Status DC Sodium Chloride 1,000 ml @ 70 mls/hr [id number] IV Last administered on 10/05/17at 22:39; Start 10/04/17 at 04:15 Sodium Chloride (NS Flush) 2 ml UNSCH PRN IV FLUSH FLUSH AFTER USING IV ACCESS ; Start 10/04/17 at 01:00 A/P Problem List: (1) CVA (cerebral vascular accident) ICD Code: I63.9 - Cerebral infarction, unspecified Status: Acute Assessment and Plan A/P 1. CVA Head CT significant for an 8 mm low-attenuation area in the left basal ganglia most consistent with an area of infarct which is acute to subacute Neurology consulted, appreciate recommendations continue Aspirin and plavix- on statin. PT/OT/speech consulted start on amlodipine. 2. Diabetes mellitus f/u as outpatient. 3. Peripheral vascular disease Continue aspirin and Plavix 4. Hypertension/hyperlipidemia Continue home medications Discharge Planning dc home with [facility]. see med list. f/u; pcp and neurology. d/w the patient. Doc Zamora MD Oct 06, 2017 08:29
[2017-10-06] MEDS ORDERED: ASA325 PO (08:31)
[2017-10-06] MEDS ORDERED: PILL SPLITTER OTHER PRN (08:45)
[2017-10-06] MEDS ORDERED: amLODIPine BESYLATE 5 MG TAB PO SCH (09:00)
--- NOTE | 2017-10-06 11:04 | ECHRPT ---
Indication: CVA/TIA CONCLUSIONS Mildly dilated left ventricle. Wall thickness is normal. Global hypokinesis. The left ventricular systolic function is [id number] reduced with an estimated ejection fra ction of 35%. Trace mitral valve regurgitation. Trace aortic valve regurgitation. There is trace tricuspid valve regurgitation. The estimated pulmonary arterial pressure is 38 mmHg. BP: / HR: Rhythm: Sinus MEASUREMENTS (Male / Female) Normal Values Technical Quality:Fair 2D ECHO LV Diastolic Diameter PLAX 4.8 cm 4.2 - 5.9 / 3.9 - 5.3 cm LV Systolic Diameter PLAX 4.0 cm IVS Diastolic Thickness 0.8 cm 0.6 - 1.0 / 0.6 - 0.9 cm LVPW Diastolic Thickness 0.8 cm 0.6 - 1.0 / 0.6 - 0.9 cm LV Relative Wall Thickness 0.3 RV Internal Dim ED PLAX 1.5 cm LVOT Diameter 1.9 cm Aortic Root Diameter 3.1 cm LA Systolic Diameter LX 3.5 cm 3.0 - 4.0 / 2.7 - 3.8 cm M-MODE AV Cusp Separation MM 1.6 cm DOPPLER AV Peak Velocity 112.0 cm/s AV Peak Gradient 5.0 mmHg AV Mean Gradient 3.0 mmHg AV Velocity Time Integral 24.6 cm LVOT Peak Velocity 73.7 cm/s LVOT Peak Gradient 2.2 mmHg LVOT Velocity Time Integral 15.0 cm AV Area Cont Eq vti 1.7 cm AV Area Cont Eq pk 1.9 cm Mitral E Point Velocity 70.1 cm/s Mitral A Point Velocity 128.0 cm/s Mitral E to A Ratio 0.5 LV E' Lateral Velocity 5.9 cm/s Mitral E to LV E' Lateral Ratio 12.0 LV E' Septal Velocity 4.6 cm/s Mitral E to LV E' Septal Ratio 15.3 TR Peak Velocity 267.0 cm/s TR Peak Gradient 28.5 mmHg Right Atrial Pressure 10.0 mmHg Pulmonary Artery Systolic Pressu 38.5 mmHg Right Ventricular Systolic Press 38.5 mmHg PV Peak Velocity 49.6 cm/s PV Peak Gradient 1.0 mmHg FINDINGS LEFT VENTRICLE Mildly dilated left ventricle. Wall thickness is normal. Global hypokinesis. The left ventricular systolic function is [id number] reduced with an estimated ejection fra ction of 35%. RIGHT VENTRICLE Normal right ventricular size and systolic function. LEFT ATRIUM The left atrial size is normal. RIGHT ATRIUM The right atrial size is normal. ATRIAL SEPTUM No atrial level shunt is demonstrated by color flow Doppler interrogation. AORTA The aortic root and proximal ascending aorta are normal in size on limited imaging. MITRAL VALVE Trace mitral valve regurgitation. AORTIC VALVE Trace aortic valve regurgitation. TRICUSPID VALVE There is trace tricuspid valve regurgitation. The estimated pulmonary arterial pressure is 38 mmHg. PULMONARY VALVE The pulmonary valve is not well visualized. VESSELS The inferior vena cava was not well visualized. Dalton Bowden MD (Electronically Signed) Final Date:06 October 2017 11:02 Amended: 06 October 2017 14:08
[2017-10-06] MEDS: SODIUM CHLOR 0.9% 1000 ML INJ 1,000 ML IV SCH (13:55)
--- NOTE | 2017-10-06 15:03 | MB ---
cc: Dalton Bowden MD DATE: 10/06/2017 REASON FOR CONSULTATION: Cardiomyopathy. HISTORY OF PRESENT ILLNESS: The patient is a 72-year-old male with a history of hypertension, diabetes, hyperlipidemia, peripheral vascular disease, who was admitted with acute neurological symptoms. He was found to have an acute left basal ganglia cerebrovascular accident by MRI imaging. Echocardiogram revealed evidence for reduced ejection fraction of 35%. He denies shortness of breath, paroxysmal nocturnal dyspnea, orthopnea, or pedal edema, dizziness, syncope, near syncope, palpitations. About a week ago, he may have had a single, less than 1 minute, episode of sharp left-sided chest pain. He cannot recall any other chest pains. PAST MEDICAL HISTORY: 1. Hyperlipidemia. 2. Diabetes. 3. Hypertension. 4. Peripheral vascular disease with history of possibly right femoral artery stenting. 5. Acute cerebrovascular accident as above. CURRENT CARDIAC MEDICATIONS: 1. Amlodipine 2.5 mg daily. 2. Atorvastatin 40 mg at bedtime. 3. Aspirin 325 mg daily. 4. Clopidogrel 75 mg daily. ALLERGIES: ANTIFUNGAL CREAM, LISINOPRIL, LOSARTAN. FAMILY HISTORY: Noncontributory. There is no significant family history of early myocardial infarction. SOCIAL HISTORY: The patient quit smoking more than 40 years ago. He denies alcohol abuse. REVIEW OF SYSTEMS: As in history of present illness, otherwise negative or noncontributory. He also denies headache, abdominal pain, melena, dyspepsia, bright red blood per rectum, claudication. PHYSICAL EXAMINATION: VITAL SIGNS: Blood pressure 162/79 with a pulse of 77, respirations 18. GENERAL: He is a well-developed, well-nourished male in no acute distress. NECK: Jugular venous pressure is normal. Carotid pulses are 2+ bilaterally and without bruits. CHEST: Reveals clear lungs whiteside. CARDIAC: He has a regular rhythm and rate without S3, S4, or murmur. ABDOMEN: He has a soft, nontender abdomen. Bowel sounds are present. There is no definite hepatosplenomegaly. EXTREMITIES: Reveals no clubbing, cyanosis or edema. LABORATORY DATA: Includes WBC 6.6, hemoglobin 12.8, platelets 249. Potassium 4.2, BUN 12, creatinine 0.77. Total cholesterol 100, LDL 37, HDL 44, triglycerides 99. EKG from 10/03/2017, shows normal sinus rhythm, left axis deviation, possible anteroseptal infarct, age undetermined. 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 At this time, there is no evidence for congestive heart failure or acute coronary syndrome. The etiology of his cardiomyopathy is not entirely clear. It may be from hypertension. The hypokinesis on echocardiogram is global in nature. On the other hand, he does have a number of risk factors for coronary disease including hyperlipidemia, diabetes, hypertension, peripheral vascular disease. RECOMMENDATIONS: 1. Would favor using a beta greg such as carvedilol in place of the amlodipine. 2. No LOGAN inhibitor or angiotensin receptor greg as he has reported allergies to these drugs. 3. Continue daily aspirin. 4. Check a Lexiscan nuclear stress test to rule out significant myocardial ischemia. 5. If his nuclear stress test is negative for ischemia, he is cleared for discharge from a cardiac standpoint. Dalton Bowden MD G[facility]/TL , 02:39 PM , 03:02 PM [id number]
[2017-10-06] MEDS ORDERED: MAGNESIUM HYDROXIDE SUSP 30 ML CUP PO PRN (17:00)
[2017-10-06] MEDS: ATORVASTATIN 40 MG TAB PO SCH (20:25)
[2017-10-06] MEDS ORDERED: CARVEDILOL 6.25 MG TAB PO SCH (21:00)
[2017-10-07] VITALS (8 sets, daily range): BP systolic 112–168; BP diastolic 57–86; PULSE 66–93; RESP 18; TEMP 97.5–98.2; O2SAT 96–100
--- NOTE | 2017-10-07 07:45 | PD.CARD.PN ---
Subjective Subjective Remarks Denies CP, dyspnea, dizziness, palpitations. Slept well. Objective Medications Item Value Date Time Carvedilol 6.25 mg 10/06/17 2100 (Coreg) Q12HR/PO 10/06/172024 Atorvastatin 40 mg 10/04/17 2100 Calcium HS/PO 10/06/172024 (Lipitor) Aspirin 325 mg 10/04/17 0900 (Aspirin) DAILY/PO 10/06/17 075 Heparin Sodium 5,000 units 10/04/17 0900 (Porcine) Q12HR/SQ 10/06/172024 (Heparin Inj) Clopidogrel 75 mg 10/04/17 0900 Bisulfate DAILY/PO 10/06/17750 (Plavix) Current Medications Medications (Trade) Dose Ordered Sig/Manuela Route Start Time Stop Time Status Last Admin (NS Flush) 2 ml BID IV FLUSH 10/04/17 09:00 (NS Flush) 2 ml UNSCH PRN IV FLUSH 10/04/17 01:00 (Aspirin) 325 mg DAILY PO 10/04/17 09:00 10/06/17 07:51 (NovoLOG SUPPLEMENTAL SCALE) 1 ACHS SQ 10/04/17 08:00 10/06/17 18:00 (D50w (Vial) Inj) 50 ml UNSCH PRN IV PUSH 10/04/17 01:00 (Glucagon Inj) 1 mg UNSCH PRN OTHER 10/04/17 01:00 (Heparin Inj) 5,000 units Q12HR SQ 10/04/17 09:00 10/06/17 20:25 (Lipitor) 40 mg HS PO 10/04/17 21:00 10/06/17 20:25 (Plavix) 75 mg DAILY PO 10/04/17 09:00 10/06/17 07:51 (Protonix) 40 mg DAILY PO 10/04/17 09:00 10/06/17 07:51 Sodium Chloride 1,000 ml @ 70 mls/hr [id number] IV 10/04/17 04:15 10/06/17 13:55 (Catapres) 0.1 mg Q6H PRN PO 10/05/17 16:45 (Pill Splitter) 1 ea UNSCH PRN OTHER 10/06/17 08:45 (Coreg) 6.25 mg Q12HR PO 10/06/17 21:00 10/06/17 20:25 (Milk Of Graciela Aguilera) 30 ml Q12H PRN PO 10/06/17 17:00 10/06/17 17:59 Vital Signs / I&O Vital Signs Date Time Temp Pulse Resp B/P (MAP) Pulse Ox O2 Delivery O2 Flow Rate FiO2 10/07/17 04:00 97.5 76 18 163/78 (106) 99 10/07/17 00:00 97.8 89 18 161/85 (110) 98 10/06/17 21:53 79 10/06/17 20:54 96 10/06/17 20:00 99.1 81 18 155/74 (101) 96 10/06/17 16:00 97.8 77 18 164/82 (109) 96 10/06/17 16:00 64 10/06/17 12:00 97.9 77 18 162/79 (106) 97 10/06/17 08:00 75 10/06/17 08:00 98.1 77 18 177/92 (120) 99 I/O 10/06/17 10/06/17 10/06/17 10/07/17 10/07/17 10/07/17 07:00 15:00 23:00 07:00 15:00 23:00 Intake Total 450 ml 480 ml Output Total 400 ml Balance 50 ml 480 ml Intake Oral 450 ml 480 ml Output Urine Total 400 ml # Voids 3 3 # Bowel Movements 0 1 0 Physical Exam GENERAL: Well developed, well nourished. No acute distress. HEENT: Jugular venous pressure is normal. CHEST: Lungs clear to auscultation bilaterally. CARDIAC: Regular rate and rhythm without S3, S4, or murmur. ABDOMEN: Soft, nontender, no hepatosplenomegaly. Bowel sounds present. EXTREMITIES: No clubbing, cyanosis, or edema. Assessment and Plan Problem List: (1) Dilated cardiomyopathy ICD Codes: I42.0 - Dilated cardiomyopathy Status: Chronic Plan: Stable overnight. Patient asymptomatic. No acute CHF. EF 35% by echo. Suspect non-ischemic cardiomyopathy though patient with multiple CAD risk factors. REC await nuclear stress test this morning; OK to discharge if negative for ischemia continue carvedilol; no LOGAN-I or ARB as patient with reported allergic reactions to these drugs though patient cannot recall the reactions continue daily aspirin (2) Hypertension ICD Codes: I10 - Essential (primary) hypertension Status: Chronic Plan: Hypertensive though patient s/p recent CVA. Follow as outpatient. (3) Peripheral vascular disease ICD Codes: I73.9 - Peripheral vascular disease, unspecified Status: Chronic Plan: Stable. No claudication symptoms. Continue clopidogrel. Will have patient see Dr. Mane Nolen in the future for PVD f/u. Code Status full code Discussed Condition With patient and niece Problem Qualifiers (1) Hypertension: Qualified Codes: I10 - Essential (primary) hypertension Dalton Bowden MD Oct 07, 2017 07:44
[2017-10-07] MEDS: INSULIN ASPART SUPPLEMENTAL SCALE SQ SCH ×4 (08:00→21:00)
[2017-10-07] MEDS: PANTOPRAZOLE SOD 40 MG DELAYED RELEASE TAB PO SCH (08:23)
[2017-10-07] MEDS: CLOPIDOGREL 75 MG TAB PO SCH (08:23)
[2017-10-07] MEDS: SODIUM CHLORIDE 0.9% FLUSH 10 ML FLUSH IV FLUSH SCH ×2 (08:24→21:29)
[2017-10-07] MEDS: ASPIRIN 325 MG TAB PO SCH (08:24)
[2017-10-07] MEDS: HEPARIN SODIUM - SQ 10,000 UNITS/ML VIAL SQ SCH ×2 (08:24→21:29)
[2017-10-07] MEDS: CARVEDILOL 12.5 MG TAB PO SCH ×2 (08:29→21:29)
--- NOTE | 2017-10-07 09:44 | HHI.PR ---
Subjective Remarks in no acute distress. resting comfortably. no chest pain or sob. Objective Vitals Vital Signs Date Time Temp Pulse Resp B/P (MAP) Pulse Ox O2 Delivery O2 Flow Rate FiO2 10/07/17 04:00 97.5 76 18 163/78 (106) 99 10/07/17 00:00 97.8 89 18 161/85 (110) 98 10/06/17 21:53 79 10/06/17 20:54 96 10/06/17 20:00 99.1 81 18 155/74 (101) 96 10/06/17 16:00 97.8 77 18 164/82 (109) 96 10/06/17 16:00 64 10/06/17 12:00 97.9 77 18 162/79 (106) 97 I/O 10/06/17 10/06/17 10/06/17 10/07/17 10/07/17 10/07/17 07:00 15:00 23:00 07:00 15:00 23:00 Intake Total 450 ml 480 ml Output Total 400 ml Balance 50 ml 480 ml Intake Oral 450 ml 480 ml Output Urine Total 400 ml # Voids 3 3 # Bowel Movements 0 1 0 Result Diagram: 10/04/17 0539 10/05/17 0524 Imaging Last Impressions Head Magnetic Resonance Angiography 10/04/17 Signed Impressions: CONCLUSION: 1. No abnormality seen on this exam. Carotid Artery Ultrasound 10/04/17 Signed Impressions: CONCLUSION: 1. Right Internal Carotid Artery: No significant stenosis visualized. 2. Left Internal Carotid Artery: No significant stenosis visualized. Brain MRI 10/04/17 Signed Impressions: CONCLUSION: 1. Evidence of acute infarct involving the left thalamus. Head CT 10/03/172123 Signed Impressions: CONCLUSION: 1. No acute hemorrhage or mass effect. 2. 8 mm low-attenuation area in the left basal ganglia most consistent with an area of infarction which may be acute to subacute. This could be further evalu ated with MRI imaging. 3. Atrophy and chronic small vessel ischemic changes. Chest X-Ray 10/03/172123 Signed Impressions: CONCLUSION: No acute cardiopulmonary abnormality is identified. Objective Remarks GENERAL: This is a well-nourished, well-developed patient, in no apparent distress. CARDIOVASCULAR: Regular rate and regular rhythm without murmurs, gallops, or rubs. RESPIRATORY: Clear to auscultation. Breath sounds equal bilaterally. No wheezes , rales, or rhonchi. GASTROINTESTINAL: Abdomen soft, non-tender, nondistended. Normal, active bowel sounds MUSCULOSKELETAL: Extremities without clubbing, cyanosis, or edema. NEURO: Alert & Oriented x4 to person, place, time, situation. Moves all ext x4 Procedures None Medications and IVs Inpatient Medications Amlodipine Besylate (Norvasc) 2.5 mg DAILY PO Last administered on 10/06/17 09: 51; Start 10/06/17 at 09:00; Stop 10/06/17 at 14:41; Status DC Aspirin (Aspirin) 325 mg DAILY PO Last administered on 10/07/17 08:24; Start at 09:00 Atorvastatin Calcium (Lipitor) 40 mg HS PO Last administered on 10/06/17 20:25 ; Start 10/04/17 at 21:00 Carvedilol (Coreg) 12.5 mg Q12HR PO Last administered on 10/07/17 08:29; Start 10/07/17 at 09:00 Clonidine (Catapres) 0.1 mg Q6H PRN PO SBP>200, DBP>100; Start 10/05/17 at 16:45 Clopidogrel Bisulfate (Plavix) 75 mg DAILY PO Last administered on 10/07/17 08: 23; Start 10/04/17 at 09:00 Dextrose (D50w (Vial) Inj) 50 ml UNSCH PRN IV PUSH HYPOGLYCEMIA-SEE COMMENTS; Start 10/04/17 at 01:00 Glucagon (Glucagon Inj) 1 mg UNSCH PRN OTHER HYPOGLYCEMIA-SEE COMMENTS; Start 10/04/17 at 01:00 Heparin Sodium (Porcine) (Heparin Inj) 5,000 units Q12HR SQ Last administered on 10/07/17 08:24; Start 10/04/17 at 09:00 Insulin Aspart (NovoLOG SUPPLEMENTAL SCALE) 1 ACHS SQ Last administered on 18:00; Start 10/04/17 at 08:00 Magnesium Hydroxide (Milk Of Magnesia Liq) 30 ml Q12H PRN PO CONSTIPATION Last administered on 10/06/17 17:59; Start 10/06/17 at 17:00 Miscellaneous (Pill Splitter) 1 ea UNSCH PRN OTHER SEE LABEL COMMENTS; Start at 08:45 Pantoprazole Sodium (Protonix) 40 mg DAILY PO Last administered on 10/07/17at 08: 23; Start 10/04/17 at 09:00 Potassium Chloride (KCl) 20 meq ONCE ONCE PO Last administered on 10/05/17at 00: 35; Start 10/05/17 at 00:30; Stop 10/05/17 at 00:31; Status DC Sodium Chloride 1,000 ml @ 70 mls/hr [id number] IV Last administered on 10/06/17at 13:55; Start 10/04/17 at 04:15 Sodium Chloride (NS Flush) 2 ml UNSCH PRN IV FLUSH FLUSH AFTER USING IV ACCESS ; Start 10/04/17 at 01:00 A/P Problem List: (1) CVA (cerebral vascular accident) ICD Code: I63.9 - Cerebral infarction, unspecified Status: Acute Assessment and Plan A/P 1. CVA Head CT significant for an 8 mm low-attenuation area in the left basal ganglia most consistent with an area of infarct which is acute to subacute Neurology consulted, appreciate recommendations continue Aspirin and plavix- on statin. PT/OT/speech consulted started on coreg. no LOGAN due to history of allergies. 2. Diabetes mellitus f/u as outpatient. 3. Peripheral vascular disease Continue aspirin and Plavix 4. Hypertension/hyperlipidemia Continue home medications 5. cardiomyopathy with EF 35% cardiology consult appreciated; started on Coreg- stress test today. Discharge Planning dc home with [facility] today if stress test is negative. see med list. f/u; pcp and neurology and cardiology. d/w the patient. Problem Qualifiers (1) CVA (cerebral vascular accident): Qualified Codes: I63.9 - Cerebral infarction, unspecified Doc Zamora MD Oct 07, 2017 09:44
[2017-10-07] MEDS ORDERED: CARV12.5 PO (09:45)
--- NOTE | 2017-10-07 13:33 | HHI.FF ---
Face to Face Verification Diagnosis: (1) CVA (cerebral vascular accident) Occupational Therapy Order: Evaluate and Treat Speech Therapy Order: To Improve: Cognitive skills Home Health Nursing Order: Medical education Signs/symptoms of disease process Medication education-adverse effect Nursing assessment with vital signs I have seen patient Daniel Jimenez on 10/07/17. My clinical findings support the need for the requested home health care services because: Ltd mobility - disease progression I certify that my clinical findings support that this patient is homebound because: Unsteady gait/balance Doc Zamora MD Oct 07, 2017 13:33
[2017-10-07] MEDS ORDERED: REGADENOSON INJ 0.4 MG/5 ML SYR ONE (15:05)
[2017-10-07] MEDS: SODIUM CHLOR 0.9% 1000 ML INJ 1,000 ML IV SCH ×2 (17:03→17:04)
--- NOTE | 2017-10-07 17:29 | RADRPT ---
EXAM DATE: 10/07/2017 4:51 PM EDT AGE/SEX: 72 years / Male INDICATIONS:Angina. . Cardiomyopathy. CLINICAL DATA: This is the patient's initial encounter. Patient reports that signs and symptoms have been present for 1 day and indicates a pain score of 0/10. MEDICAL/SURGICAL HISTORY: Hypertension. Diabetes mellitus type II. Peripheral vascular diseas e. Stroke. None. COMPARISON: No prior [facility] exams available for comparison. No external comparison. DOSE: 8.7 mCi Tc 99m Myoview at rest 25.8 mCi [id number] at rest 0.4 mg Lexiscan STRESS SYMPTOMS: None. EJECTION FRACTION: 38 % TECHNIQUE: The patient underwent pharmacologic stress with infusion of prescribed dose. Continuous ECG tracing was monitored during stress. Gated SPECT imaging was performed after stress and conventi onal SPECT imaging was performed at rest. The examination was performed on a SPECT/CT scanner, both attenuation and non-corrected datasets were reviewed. FINDINGS: Distribution: The maximum perfused segment at stress is in the lateral wall. Perfusion Study: The pattern of perfusion at stress is within normal limits. Gated Study: Mild left ventricular chamber dilatation with global moderate hypokinesis The ejection fraction is calculated at 38%. RISK CATEGORY: Intermediate (1-3 % Annual Mortality Rate) CONCLUSION: 1. Moderate LV chamber dilatation and LV dysfunction. 2. No evidence of ischemia Electronically signed by: Lavelle Kwong MD 10/07/2017 5:28 PM EDT
--- NOTE | 2017-10-07 18:29 | PD.CONS ---
[facility] Service Rehabilitation Medicine Consult Requested By Cullen Gayle MD Reason for Consult Comprehensive rehabilitation evaluation. Primary Care Physician Adrián Martinez M.D. History of Present Illness Daniel Jimenez is a 72-year-old [id number] male admitted to [facility] 10/03/17 with slurred speech and left-sided weakness. Head CT was negative. Brain MRI showed evidence of acute infarct involving the left thalamus. Cardiology consult notes: Moderate to severe dilated cardiomyopathy with ejection fraction of 35%. Lexiscan showed moderate LV chamber dilatation and LV dysfunction. No evidence of ischemia Carotid ultrasound showed no significant stenosis. Review of Systems Constitutional: DENIES: Fatigue Eyes: DENIES: Blurred vision, Diplopia Ears, nose, mouth, throat: DENIES: Throat pain Respiratory: DENIES: Shortness of breath Cardiovascular: DENIES: Chest pain Gastrointestinal: COMPLAINS OF: Difficulty Swallowing (Some coughing noted with liquids), DENIES: Abdominal pain Genitourinary: DENIES: Urinary incontinence Integumentary: DENIES: Rash Hematologic/lymphatic: DENIES: Bruising Neurologic: DENIES: Headache, Localized weakness (Decreased coordination right upper and lower extremity), Paresthesias, Speech Problems Psychiatric: DENIES: Confusion Past Family Social History Allergies: Coded Allergies: lisinopril (Unverified Adverse Reaction, Severe, Swelling, 10/03/17) losartan (Unverified Adverse Reaction, Intermediate, Diarrhea, 10/03/17) Uncoded Allergies: ANTIFUNGAL CREAM (Adverse Reaction, Intermediate, Rash, 07/16/17) Past Medical History Peripheral Vascular Disease Carotid artery stenosis Hypertension Hyperlipidemia Diabetes mellitus Current Medications Current Medications Medications (Trade) Dose Ordered Sig/Manuela Route Start Time Stop Time Status Last Admin (NS Flush) 2 ml BID IV FLUSH 10/04/17 09:00 (NS Flush) 2 ml UNSCH PRN IV FLUSH 10/04/17 01:00 (Aspirin) 325 mg DAILY PO 10/04/17 09:00 10/07/17 08:24 (NovoLOG SUPPLEMENTAL SCALE) 1 ACHS SQ 10/04/17 08:00 10/07/17 17:03 (D50w (Vial) Inj) 50 ml UNSCH PRN IV PUSH 10/04/17 01:00 (Glucagon Inj) 1 mg UNSCH PRN OTHER 10/04/17 01:00 (Heparin Inj) 5,000 units Q12HR SQ 10/04/17 09:00 10/07/17 08:24 (Lipitor) 40 mg HS PO 10/04/17 21:00 10/06/17 20:25 (Plavix) 75 mg DAILY PO 10/04/17 09:00 10/07/17 08:23 (Protonix) 40 mg DAILY PO 10/04/17 09:00 10/07/17 08:23 Sodium Chloride 1,000 ml @ 70 mls/hr [id number] IV 10/04/17 04:15 10/07/17 17:04 (Catapres) 0.1 mg Q6H PRN PO 10/05/17 16:45 (Pill Splitter) 1 ea UNSCH PRN OTHER 10/06/17 08:45 (Milk Of Magnesia Liq) 30 ml Q12H PRN PO 10/06/17 17:00 10/06/17 17:59 (Coreg) 12.5 mg Q12HR PO 10/07/17 09:00 10/07/17 08:29 Family History Mother: Diabetes Social History Previous smoker. Lives with his in [facility]. Patient was independent with all mobility and ADLs prior to admission Exam I&O / VS Vital Signs Date Time Temp Pulse Resp B/P (MAP) Pulse Ox O2 Delivery O2 Flow Rate FiO2 10/07/17 12:00 98.2 72 18 155/74 (101) 97 10/07/17 10:06 99 10/07/17 08:00 98.1 75 18 168/86 (113) 99 10/07/17 08:00 77 10/07/17 04:00 97.5 76 18 163/78 (106) 99 10/07/17 00:00 97.8 89 18 161/85 (110) 98 10/06/17 21:53 79 10/06/17 20:54 96 10/06/17 20:00 99.1 81 18 155/74 (101) 96 General: No acute distress, Other (Niece at bedside) Respiratory: Lungs CTA, Non-labored respirations, BS equal Gastrointestinal: Positive Bowel Sounds, Non-Distended, Non-Tender Cardiovascular: Normal rate, No edema, Regular Rhythm Musculoskeletal: No calf tenderness Psychiatric: Cooperative, Appropriate mood & affect Orientation: oriented to Self, oriented to Place, oriented to Time (With cues) , oriented to Situation Neurologic: Pupils (PERRLA), EOM (EOMI), Visual Blackwell (Intact), Facial Symmetry (Symmetric; tongue deviates left), Speech (No word finding difficulties or paraphasic errors) Motor: Right Upper Extremity (4+/5 with mild decreased coordination), Left Upper Extremity (5/5), Right Lower Extremity (5/5), Left Lower Extremity (5/5) Sensory Intact to light touch in both upper and lower extremities DTRs: Normal Babinski: Positive (Equivocal right) Clonus: Negative Assessment and Plan Diagnosis: (1) CVA (cerebral vascular accident) ICD Codes: I63.9 - Cerebral infarction, unspecified Status: Acute Qualifiers: Qualified Codes: I63.9 - Cerebral infarction, unspecified Assessment 1. Left thalamic stroke with mild right upper extremity coordination impairments 2. Cardiomyopathy EF 35% 3. Peripheral Vascular Disease 4. Carotid artery stenosis 5. Hypertension 6. Hyperlipidemia 7. Diabetes mellitus Plan 1. Patient is now independent with transfers and ambulated 500 feet standby assist with physical therapy. Continue to mobilize. Continue fall prevention 2. Occupational therapy is addressing ADLs and now supervision for dressing. Continued OT at discharge to address right upper extremity coordination 3. Speech therapy we consulted to evaluate swallow. Family is reporting intermittent choking/coughing with liquids 4. Will follow while hospitalized and at discharge. Case management is addressing ongoing rehab therapies. Rehab plan of care discussed with patient and family and questions answered Thank you for this consult Desiree Villanueva MD Oct 07, 2017 18:29
[2017-10-07] MEDS: ATORVASTATIN 40 MG TAB PO SCH (21:29)
[2017-10-08] VITALS (7 sets, daily range): BP systolic 140–175; BP diastolic 69–81; PULSE 72–80; RESP 16–18; TEMP 97.5–98.4; O2SAT 97–98
[2017-10-08] MEDS: SODIUM CHLOR 0.9% 1000 ML INJ 1,000 ML IV SCH (07:48)
[2017-10-08] MEDS: SODIUM CHLORIDE 0.9% FLUSH 10 ML FLUSH IV FLUSH SCH (07:49)
[2017-10-08] MEDS: CLOPIDOGREL 75 MG TAB PO SCH (07:50)
[2017-10-08] MEDS: PANTOPRAZOLE SOD 40 MG DELAYED RELEASE TAB PO SCH (07:50)
[2017-10-08] MEDS: CARVEDILOL 12.5 MG TAB PO SCH (07:50)
[2017-10-08] MEDS: HEPARIN SODIUM - SQ 10,000 UNITS/ML VIAL SQ SCH (07:50)
[2017-10-08] MEDS: ASPIRIN 325 MG TAB PO SCH (07:50)
[2017-10-08] MEDS: INSULIN ASPART SUPPLEMENTAL SCALE SQ SCH ×2 (07:51→12:01)
--- NOTE | 2017-10-08 11:32 | HHI.PR ---
Subjective Remarks in no acute distress. working with ST. no new complaints. Objective Vitals Vital Signs Date Time Temp Pulse Resp B/P (MAP) Pulse Ox O2 Delivery O2 Flow Rate FiO2 10/08/17 08:45 97.6 72 18 161/79 (106) 97 10/08/17 08:00 75 10/08/17 04:00 98.4 77 18 163/76 (105) 97 10/08/17 00:00 97.5 76 18 175/81 (112) 98 10/07/17 20:08 93 10/07/17 20:00 98.0 85 18 151/72 (98) 100 10/07/17 16:00 97.8 69 18 144/76 (98) 99 10/07/17 12:00 98.2 72 18 155/74 (101) 97 I/O 10/07/17 10/07/17 10/07/17 10/08/17 10/08/17 10/08/17 07:00 15:00 23:00 07:00 15:00 23:00 # Voids 3 3 Result Diagram: 10/04/17 0539 10/05/17 0524 Imaging Last Impressions Myocardial Perfusion Scan Nuc Med 10/07/17 0000 Signed Impressions: CONCLUSION: 1. Moderate LV chamber dilatation and LV dysfunction. 2. No evidence of ischemia Head Magnetic Resonance Angiography 10/04/17 Signed Impressions: CONCLUSION: 1. No abnormality seen on this exam. Carotid Artery Ultrasound 10/04/17 0000 Signed Impressions: CONCLUSION: 1. Right Internal Carotid Artery: No significant stenosis visualized. 2. Left Internal Carotid Artery: No significant stenosis visualized. Brain MRI 10/04/17 Signed Impressions: CONCLUSION: 1. Evidence of acute infarct involving the left thalamus. Head CT 10/03/172123 Signed Impressions: CONCLUSION: 1. No acute hemorrhage or mass effect. 2. 8 mm low-attenuation area in the left basal ganglia most consistent with an area of infarction which may be acute to subacute. This could be further evalu ated with MRI imaging. 3. Atrophy and chronic small vessel ischemic changes. Chest X-Ray 10/03/172123 Signed Impressions: CONCLUSION: No acute cardiopulmonary abnormality is identified. Objective Remarks GENERAL: This is a well-nourished, well-developed patient, in no apparent distress. CARDIOVASCULAR: Regular rate and regular rhythm without murmurs, gallops, or rubs. RESPIRATORY: Clear to auscultation. Breath sounds equal bilaterally. No wheezes , rales, or rhonchi. GASTROINTESTINAL: Abdomen soft, non-tender, nondistended. Normal, active bowel sounds MUSCULOSKELETAL: Extremities without clubbing, cyanosis, or edema. NEURO: Alert & Oriented x4 to person, place, time, situation. Moves all ext x4 Procedures None Medications and IVs Inpatient Medications Amlodipine Besylate (Norvasc) 2.5 mg DAILY PO Last administered on 10/06/17 09: 51; Start 10/06/17 at 09:00; Stop 10/06/17 at 14:41; Status DC Aspirin (Aspirin) 325 mg DAILY PO Last administered on 10/08/17 07:50; Start at 09:00 Atorvastatin Calcium (Lipitor) 40 mg HS PO Last administered on 10/07/17 21:29 ; Start 10/04/17 at 21:00 Carvedilol (Coreg) 12.5 mg Q12HR PO Last administered on 10/08/17 07:50; Start 10/07/17 at 09:00 Clonidine (Catapres) 0.1 mg Q6H PRN PO SBP>200, DBP>100; Start 10/05/17 at 16:45 Clopidogrel Bisulfate (Plavix) 75 mg DAILY PO Last administered on 10/08/17 07: 50; Start 10/04/17 at 09:00 Dextrose (D50w (Vial) Inj) 50 ml UNSCH PRN IV PUSH HYPOGLYCEMIA-SEE COMMENTS; Start 10/04/17 at 01:00 Glucagon (Glucagon Inj) 1 mg UNSCH PRN OTHER HYPOGLYCEMIA-SEE COMMENTS; Start 10/04/17 at 01:00 Heparin Sodium (Porcine) (Heparin Inj) 5,000 units Q12HR SQ Last administered on 10/08/17 07:50; Start 10/04/17 at 09:00 Insulin Aspart (NovoLOG SUPPLEMENTAL SCALE) 1 ACHS SQ Last administered on 21:00; Start 10/04/17 at 08:00 Magnesium Hydroxide (Milk Of Magnesia Liq) 30 ml Q12H PRN PO CONSTIPATION Last administered on 10/06/17 17:59; Start 10/06/17 at 17:00 Miscellaneous (Pill Splitter) 1 ea UNSCH PRN OTHER SEE LABEL COMMENTS; Start at 08:45 Pantoprazole Sodium (Protonix) 40 mg DAILY PO Last administered on 10/08/17at 07: 50; Start 10/04/17 at 09:00 Potassium Chloride (KCl) 20 meq ONCE ONCE PO Last administered on 10/05/17at 00: 35; Start 10/05/17 at 00:30; Stop 10/05/17 at 00:31; Status DC Sodium Chloride 1,000 ml @ 70 mls/hr [id number] IV Last administered on 10/07/17at 17:04; Start 10/04/17 at 04:15 Sodium Chloride (NS Flush) 2 ml UNSCH PRN IV FLUSH FLUSH AFTER USING IV ACCESS ; Start 10/04/17 at 01:00 A/P Problem List: (1) CVA (cerebral vascular accident) ICD Code: I63.9 - Cerebral infarction, unspecified Status: Acute Assessment and Plan A/P 1. CVA Head CT significant for an 8 mm low-attenuation area in the left basal ganglia most consistent with an area of infarct which is acute to subacute Neurology consulted, appreciate recommendations continue Aspirin and plavix- on statin. PT/OT/speech consulted started on coreg. no LOGAN due to history of allergies. 2. Diabetes mellitus f/u as outpatient. 3. Peripheral vascular disease Continue aspirin and Plavix 4. Hypertension/hyperlipidemia Continue home medications 5. cardiomyopathy with EF 35% cardiology consult appreciated; started on Coreg- stress test with no evidence of ischemia- f/u as outpatient. Discharge Planning dc home with [facility] today. see med list. f/u; pcp and neurology and cardiology. d/w the patient. Problem Qualifiers (1) CVA (cerebral vascular accident): Qualified Codes: I63.9 - Cerebral infarction, unspecified Doc Zamora MD Oct 08, 2017 11:32
== END 2017-10-08 19:19 | disposition home health service (06) | DRG 65 ==
LOC: NEPE 21:08 → NEDA 22:32 → N05A 10-04 01:35
PROVIDERS: ADMIT Internal Medicine; ATTEND Internal Medicine
DX: I63.9 Cerebral infarction, unspecified (principal); I42.0 Dilated cardiomyopathy; E11.51 Type 2 diabetes mellitus with diabetic peripheral angiopathy without gangrene; G81.94 Hemiplegia, unspecified affecting left nondominant side; I10 Essential (primary) hypertension; E78.5 Hyperlipidemia, unspecified; R47.81 Slurred speech; R47.02 Dysphasia; I65.29 Occlusion and stenosis of unspecified carotid artery; Z87.891 Personal history of nicotine dependence; Z86.73 Personal history of transient ischemic attack (TIA), and cerebral infarction without residual deficits; Z88.8 Allergy status to other drugs, medicaments and biological substances; Z79.84 Long term (current) use of oral hypoglycemic drugs; Z79.82 Long term (current) use of aspirin; Z96.89 Presence of other specified functional implants; Z79.02 Long term (current) use of antithrombotics/antiplatelets
CPT/HCPCS: 70450; 70544; 70551; 71045; 78452; 80048; 80053; 80061; 82948; 83036; 83735; 85025; 85610; 85730; 93005; 93017; 93306; 93880; A9502; J1644; J1815; J2785; J7030

== ENCOUNTER 2018-02-18 13:53 | Observation (INO) ==
[2018-02-18 14:34] LABS: Baso % (Auto) 0.5 % (0.0-2.0); Eos # (Auto) 0.2 th/mm3 (0.0-0.4); Hematocrit 37.9 % (39.0-51.0); Hemoglobin 12.8 gm/dL (13.0-17.0); Lymph # (Auto) 2.3 th/mm3 (1.0-4.8); Lymph % (Auto) 36.2 % (9.0-44.0); Mean Corpuscular HGB Conc 33.7 % (32.0-36.0); Mean Corpuscular Hemoglobin 30.3 pg (27.0-34.0); Mean Corpuscular Volume 89.9 fL (80.0-100.0); Mean Platelet Volume 8.7 fL (7.0-11.0); Mono # (Auto) 0.5 th/mm3 (0.0-0.9); Mono % (Auto) 8.7 % (0.0-8.0); Neut # (Auto) 3.3 th/mm3 (1.8-7.7); Neut % (Auto) 51.6 % (16.0-70.0); Platelet Count 256 th/mm3 (150-450); Red Blood Count 4.21 mil/mm3 (4.50-5.90); White Blood Count 6.3 th/mm3 (4.0-11.0)
--- NOTE | 2018-02-18 14:41 | ED ---
HPI General Chief complaint: Syncope Stated complaint: Stemi Alert Time Seen by Provider: 02/18/18 14:03 History of Present Illness HPI narrative: Patient 72-year-old male history of stroke in October of this year in the thalamus presents emergency department after 2 syncopal episodes today. Patient calmly by but presented by EMS. states that he was standing doing dishes in the kitchen when suddenly without warning he fell to the floor. Patient denies any chest pain shortness of breath or focalized weakness leading up to the events. EMS and the patient's states that he does have some residual weakness from his stroke. Currently the patient states he feels well, denies any complaints denies any chest pain shortness breath abdominal pain nausea vomiting diarrhea difficulty with vision. states that after the initial syncopal event they took him to the bathroom and he had sat on the toilet and then had another syncopal episode. Symptoms mild, recurrent, occurred twice today, associated signs symptoms in context as above. Related Data Home Medications Medication Instructions Recorded Confirmed aspirin 81 mg PO DAILY 02/18/18 02/18/18 atorvastatin 40 mg PO DAILY 02/18/18 02/18/18 carvedilol [Coreg] 6.25 mg PO BID 02/18/18 02/18/18 cetirizine [Zyrtec] 10 mg PO DAILY 02/18/18 02/18/18 cholecalciferol (vitamin D3) 5,000 unit PO DAILY 02/18/18 02/18/18 [Vitamin D3] clopidogrel [Plavix] 75 mg PO DAILY 02/18/18 02/18/18 metformin 1,000 mg PO BID 02/18/18 02/18/18 omeprazole 40 mg PO DAILY 02/18/18 02/18/18 pioglitazone [Actos] 15 mg PO DAILY 02/18/18 02/18/18 sertraline [Zoloft] 50 mg PO DAILY 02/18/18 02/18/18 Previous Rx's Medication Instructions Recorded amlodipine 10 mg PO DAILY #30 tab 02/20/18 hydralazine 10 mg PO TID #90 tab 02/20/18 Allergies Allergy/AdvReac Type Severity Reaction Status Date / Time lisinopril AdvReac Severe Swelling Unverified 10/03/17 21:19 losartan AdvReac Intermediate Diarrhea Unverified 10/03/17 21:19 ANTIFUNGAL CREAM AdvReac Intermediate Rash Uncoded 07/16/17 23:54 Review of Systems ROS: all other systems reviewed are negative PMFSH Medical History Medical History Diabetes (Acute) H/O stroke within last year (Acute) Social History Social History Substance History: No History of Abuse Second Hand Smoke Exposure: No Smoking Status: Former smoker How Often Do You Have a Drink Containing Alcohol: 2 to 3 times a week Recent Travel in [facility] [place] within the Last 8 Weeks: No Recent Out of Country Travel within the Last 8 Weeks: No Exam Narrative Exam Narrative: GENERAL: Well-developed well-nourished, no obvious distress. SKIN: Focused skin assessment warm/dry. HEAD: Atraumatic. Normocephalic. EYES: Pupils equal and round. No scleral icterus. No injection or drainage. ENT: No nasal bleeding or discharge. Mucous membranes pink and moist. NECK: Trachea midline. No JVD. CARDIOVASCULAR: Regular rate and rhythm. No murmur appreciated. RESPIRATORY: No accessory muscle use. Clear to auscultation. Breath sounds equal bilaterally. GASTROINTESTINAL: Abdomen soft, non-tender, nondistended. Hepatic and splenic margins not palpable. MUSCULOSKELETAL: No obvious deformities. No clubbing. No cyanosis. No edema. NEUROLOGICAL: Awake and alert. No obvious cranial nerve deficits. Motor grossly within normal limits. Normal speech. I do not appreciate any focalized weakness in this patient. PSYCHIATRIC: Appropriate mood and affect; insight and judgment normal. Course Initial Documented Vital Signs Pulse Rate 72 02/18/18 14:00 Respiratory Rate 16 02/18/18 14:00 Blood Pressure 112/72 02/18/18 14:00 Pulse Oximetry 99 02/18/18 14:00 Last Documented Vital Signs Temperature 98.4 F 02/20/18 10:17 Pulse Rate 82 02/20/18 10:17 Respiratory Rate 16 02/20/18 10:17 Blood Pressure 128/67 02/20/18 10:17 Pulse Oximetry 99 02/20/18 10:17 Sign Out Sign Out Data: Patient Sign Out occurred on 02/18/18 at 15:13. Patient's care was discussed, and care was transferred from Brooks Vasquez MD to Nicholas Melchor. Sign Out Comment: Patient with syncopal episode x2 today, follow-up labs CT and disposition appropriately. Probably will need observation status. Last updated by Brooks Vasquez MD at 02/18/18 14:51 Post-Handoff Eval: On reevaluation the patient does not have any lateralizing weakness, no evidence of any hypoxemia nor any hypotension. Laboratory interpretation to follow: CBC does not show any leukocytosis left shift or anemia, also has a normal platelet count First set of cardiac enzymes negative Normal liver enzymes Normal electrolytes except for a random Glucose of 173. Chest x-ray read by radiologist is under aerated otherwise. CT cervical spine read by radiologist as negative for acute traumatic process, moderately severe degenerative changes with bony canal and foraminal compromise most significantly in the lower cervical spine, there is no paraspinal hematoma. CT head read by radiologist as no acute findings. At this present time due to the presentation of the patient and the multiple episodes of syncope, the patient will be admitted for observation and further evaluation by the medical team. Multiple risk factors include patient's age, previous stroke last year according to history, diabetes, hypertension and hypercholesterolemia. Medical Decision Making MDM Narrative Medical decision making narrative: Patient room to the emergency department after single episode x2 today. Denies any complaints currently. Does have a history of stroke and is anticoagulated. CT head and C-spine have been ordered as well as basic labs, reviewed an EKG and does show some left atrial enlargement and left ventricular hypertrophy but I do not see any signs of active ischemia. At 1500 the patient will be discussed with the oncoming provider to follow-up the workup and disposition the patient properly. Medical Screen Exam Complete: Yes Emergency Medical Condition: Yes Lab Data Result diagrams: 02/18/18 14:00 02/19/18 06:54 Lab Results 02/18/18 02/18/18 02/18/18 Range/Units 14:00 14:00 20:50 WBC 6.3 (4.0-11.0) th/mm3 RBC 4.21 L (4.50-5.90) mil/mm3 Hgb 12.8 L (13.0-17.0) gm/dL Hct 37.9 L (39.0-51.0) % MCV 89.9 (80.0-100.0) fL MCH 30.3 (27.0-34.0) pg MCHC 33.7 (32.0-36.0) % RDW 15.0 (11.6-17.2) % Plt Count 256 (150-450) th/mm3 MPV 8.7 (7.0-11.0) fL Neut % (Auto) 51.6 (16.0-70.0) % Lymph % (Auto) 36.2 (9.0-44.0) % H[place] % (Auto) 8.7 H (0.0-8.0) % Eos % (Auto) 3.0 (0.0-4.0) % Baso % (Auto) 0.5 (0.0-2.0) % Neut # (Auto) 3.3 (1.8-7.7) th/mm3 Lymph # (Auto) 2.3 (1.0-4.8) th/mm3 H[place] # (Auto) 0.5 (0.0-0.9) th/mm3 Eos # (Auto) 0.2 (0.0-0.4) th/mm3 Baso # (Auto) 0.0 (0.0-0.2) th/mm3 WBC Differential . Differential Comment Auto diff final Sodium 134 L (136-145) meq/L Potassium 4.0 (3.5-5.1) meq/L Chloride 99 (98-107) meq/L Carbon Dioxide 30.3 (21.0-32.0) meq/L Anion Gap 5 (5-15) meq/L BUN 16 (7-18) mg/dL Creatinine 1.17 (0.60-1.30) mg/dL Estimated GFR 75 L (>89) mL/min POC Glucose 179 H (68-110) mg/dl Random Glucose 173 H (74-106) mg/dL Calcium 8.4 L (8.5-10.1) mg/dL Total Bilirubin 0.5 (0.2-1.0) mg/dL AST 15 (15-37) U/L ALT 22 (12-78) U/L Alkaline Phosphatase 88 (45-117) U/L Troponin I Less than 0.02 L (0.02-0.05) ng/mL Total Protein 6.7 (6.4-8.2) g/dL Albumin 3.4 (3.4-5.0) g/dL Urine Opiates Screen (Neg) Ur Barbiturates Screen (Neg) Ur Amphetamines Screen (Neg) U Benzodiazepines Scrn (Neg) Urine Cocaine Screen (Neg) U Cannabinoids Screen (Neg) 02/18/18 02/19/18 02/19/18 Range/Units 22:09 06:05 06:54 WBC (4.0-11.0) th/mm3 RBC (4.50-5.90) mil/mm3 Hgb (13.0-17.0) gm/dL Hct (39.0-51.0) % MCV (80.0-100.0) fL MCH (27.0-34.0) pg MCHC (32.0-36.0) % RDW (11.6-17.2) % Plt Count (150-450) th/mm3 MPV (7.0-11.0) fL Neut % (Auto) (16.0-70.0) % Lymph % (Auto) (9.0-44.0) % H[place] % (Auto) (0.0-8.0) % Eos % (Auto) (0.0-4.0) % Baso % (Auto) (0.0-2.0) % Neut # (Auto) (1.8-7.7) th/mm3 Lymph # (Auto) (1.0-4.8) th/mm3 H[place] # (Auto) (0.0-0.9) th/mm3 Eos # (Auto) (0.0-0.4) th/mm3 Baso # (Auto) (0.0-0.2) th/mm3 WBC Differential Differential Comment Sodium 135 L (136-145) meq/L Potassium 3.9 (3.5-5.1) meq/L Chloride 100 (98-107) meq/L Carbon Dioxide 29.6 (21.0-32.0) meq/L Anion Gap 5 (5-15) meq/L BUN 15 (7-18) mg/dL Creatinine 0.83 (0.60-1.30) mg/dL Estimated GFR Greater than 89 (>89) mL/min POC Glucose (68-110) mg/dl Random Glucose 165 H (74-106) mg/dL Calcium 8.5 (8.5-10.1) mg/dL Total Bilirubin (0.2-1.0) mg/dL AST (15-37) U/L ALT (12-78) U/L Alkaline Phosphatase (45-117) U/L Troponin I Less than 0.02 L Less than 0.02 L (0.02-0.05) ng/mL Total Protein (6.4-8.2) g/dL Albumin (3.4-5.0) g/dL Urine Opiates Screen Neg (Neg) Ur Barbiturates Screen Neg (Neg) Ur Amphetamines Screen Neg (Neg) U Benzodiazepines Scrn Neg (Neg) Urine Cocaine Screen Neg (Neg) U Cannabinoids Screen Neg (Neg) 02/19/18 02/19/18 02/19/18 Range/Units 08:30 13:46 18:44 WBC (4.0-11.0) th/mm3 RBC (4.50-5.90) mil/mm3 Hgb (13.0-17.0) gm/dL Hct (39.0-51.0) % MCV (80.0-100.0) fL MCH (27.0-34.0) pg MCHC (32.0-36.0) % RDW (11.6-17.2) % Plt Count (150-450) th/mm3 MPV (7.0-11.0) fL Neut % (Auto) (16.0-70.0) % Lymph % (Auto) (9.0-44.0) % H[place] % (Auto) (0.0-8.0) % Eos % (Auto) (0.0-4.0) % Baso % (Auto) (0.0-2.0) % Neut # (Auto) (1.8-7.7) th/mm3 Lymph # (Auto) (1.0-4.8) th/mm3 H[place] # (Auto) (0.0-0.9) th/mm3 Eos # (Auto) (0.0-0.4) th/mm3 Baso # (Auto) (0.0-0.2) th/mm3 WBC Differential Differential Comment Sodium (136-145) meq/L Potassium (3.5-5.1) meq/L Chloride (98-107) meq/L Carbon Dioxide (21.0-32.0) meq/L Anion Gap (5-15) meq/L BUN (7-18) mg/dL Creatinine (0.60-1.30) mg/dL Estimated GFR (>89) mL/min POC Glucose 187 H 264 H 158 H (68-110) mg/dl Random Glucose (74-106) mg/dL Calcium (8.5-10.1) mg/dL Total Bilirubin (0.2-1.0) mg/dL AST (15-37) U/L ALT (12-78) U/L Alkaline Phosphatase (45-117) U/L Troponin I (0.02-0.05) ng/mL Total Protein (6.4-8.2) g/dL Albumin (3.4-5.0) g/dL Urine Opiates Screen (Neg) Ur Barbiturates Screen (Neg) Ur Amphetamines Screen (Neg) U Benzodiazepines Scrn (Neg) Urine Cocaine Screen (Neg) U Cannabinoids Screen (Neg) 02/19/18 02/20/18 Range/Units 22:09 08:28 WBC (4.0-11.0) th/mm3 RBC (4.50-5.90) mil/mm3 Hgb (13.0-17.0) gm/dL Hct (39.0-51.0) % MCV (80.0-100.0) fL MCH (27.0-34.0) pg MCHC (32.0-36.0) % RDW (11.6-17.2) % Plt Count (150-450) th/mm3 MPV (7.0-11.0) fL Neut % (Auto) (16.0-70.0) % Lymph % (Auto) (9.0-44.0) % [place] % (Auto) (0.0-8.0) % Eos % (Auto) (0.0-4.0) % Baso % (Auto) (0.0-2.0) % Neut # (Auto) (1.8-7.7) th/mm3 Lymph # (Auto) (1.0-4.8) th/mm3 [place] # (Auto) (0.0-0.9) th/mm3 Eos # (Auto) (0.0-0.4) th/mm3 Baso # (Auto) (0.0-0.2) th/mm3 WBC Differential Differential Comment Sodium (136-145) meq/L Potassium (3.5-5.1) meq/L Chloride (98-107) meq/L Carbon Dioxide (21.0-32.0) meq/L Anion Gap (5-15) meq/L BUN (7-18) mg/dL Creatinine (0.60-1.30) mg/dL Estimated GFR (>89) mL/min POC Glucose 174 H 170 H (68-110) mg/dl Random Glucose (74-106) mg/dL Calcium (8.5-10.1) mg/dL Total Bilirubin (0.2-1.0) mg/dL AST (15-37) U/L ALT (12-78) U/L Alkaline Phosphatase (45-117) U/L Troponin I (0.02-0.05) ng/mL Total Protein (6.4-8.2) g/dL Albumin (3.4-5.0) g/dL Urine Opiates Screen (Neg) Ur Barbiturates Screen (Neg) Ur Amphetamines Screen (Neg) U Benzodiazepines Scrn (Neg) Urine Cocaine Screen (Neg) U Cannabinoids Screen (Neg) Imaging Data Radiologist's impression: Carotid Doppler Study 02/18/18 00:00 CONCLUSION: 1. Right Internal Carotid Artery: Mild plaque without significant stenosis. 2. Left Internal Carotid Artery: Mild plaque without significant stenosis. Chest X-Ray 02/18/18 14:10 CONCLUSION: Under aerated otherwise negative Cervical Spine CT 02/18/18 14:41 CONCLUSION: 1. Moderately motion degraded exam grossly negative for acute traumatic process. 2. Moderately severe degenerative changes with bony canal and foraminal compromise most significantly in the lower cervical spine. Head CT 02/18/18 14:41 CONCLUSION: 1. No acute findings. . Discharge Plan Discharge Disposition Patient Disposition: 30 Still Patient Discharge Condition Condition: Good Discharge Order Discharge Orders: Discharge Order (Routine); Ordered 02/20/18 Ordered By: Bella Yanez Discharge Details Diagnosis: Syncope Physicians Team ED Provider: Nicholas Melchor Primary Care Provider: UNKNOWN, Attending Provider: Bella Yanez Other Providers: [employer] Status ED Status: Left Department Discharge Information Discharge Date/Time: 02/18/18 19:00
[2018-02-18 14:49] LABS: Alanine Aminotransferase 22 U/L (12-78); Albumin 3.4 g/dL (3.4-5.0); Anion Gap 5 meq/L (5-15); Aspartate Aminotransferase 15 U/L (15-37); Blood Urea Nitrogen 16 mg/dL (7-18); Calcium 8.4 mg/dL (8.5-10.1); Carbon Dioxide 30.3 meq/L (21.0-32.0); Chloride 99 meq/L (98-107); Glomerular Filtration Rate 75 mL/min (>89); Glucose,Random 173 mg/dL (74-106); Sodium 134 meq/L (136-145)
[2018-02-18 14:53] LABS: Alkaline Phosphatase 88 U/L (45-117); Total Protein 6.7 g/dL (6.4-8.2)
--- NOTE | 2018-02-18 15:11 | CT ---
EXAM DATE: 02/18/2018 2:47 PM EDT AGE/SEX: 72 years / Male INDICATIONS: Syncopal episode. CLINICAL DATA: This is the patient's initial encounter. Patient reports that signs and symptoms have been present for 1 day and indicates a pain score of 3/10. MEDICAL/SURGICAL HISTORY: Cerebrovascular disease. Diabetes. None. RADIATION DOSE: 56.35 CTDI (mGy) COMPARISON: C, MRA BRAIN W/O CONTRAST, 10/04/2017. C, MRI BRAIN W/O CONTRAST, 10/04/2017. C, CT BRAIN W/O CONTRAST, 10/03/2017. . TECHNIQUE: CT of the head without contrast. Using automated exposure control and adjustment of the mA and/or kV according to patient size, radiation dose was kept as low as reasonably achievable to ob tain optimal diagnostic quality images. DICOM format image data is available electronically for revi ew and comparison. FINDINGS: Mild volume loss and patchy and confluent diminished attenuation of the bilateral centrum semiovale a nd periventricular white matter, not significant changed and felt to be most characteristic of chroni c microvascular ischemic disease. Remote left basal ganglia lacunar infarct. No fractures are seen. CONCLUSION: 1. No acute findings. . Electronically signed by: Olu Hyde MD 02/18/2018 3:10 PM EDT
--- NOTE | 2018-02-18 15:23 | XR ---
EXAM DATE: 02/18/2018 2:10 PM EDT AGE/SEX: 72 years / Male INDICATIONS: Shortness of breath, chest pain, general weakness. CLINICAL DATA: This is the patient's initial encounter. Patient reports that signs and symptoms have been present for 1 day and indicates a pain score of 6/10. MEDICAL/SURGICAL HISTORY: Hypertension. Diabetes mellitus type II. Peripheral vascular diseas e. Stroke. None. COMPARISON: [facility] [place], CHEST SINGLE AP, 10/03/2017. . FINDINGS: The lungs are under aerated with marked elevation of the left hemidiaphragm. There is no evidence con solidation, pleural effusion or pneumothorax. The portion of the bony skeleton visualized is unremark able. CONCLUSION: Under aerated otherwise negative Electronically signed by: Obi Mg MD 02/18/2018 3:22 PM EDT
--- NOTE | 2018-02-18 15:29 | CT ---
EXAM DATE: 02/18/2018 2:47 PM EDT AGE/SEX: 72 years / Male INDICATIONS: Syncopal episode. CLINICAL DATA: This is the patient's initial encounter. Patient reports that signs and symptoms have been present for 1 day and indicates a pain score of 3/10. MEDICAL/SURGICAL HISTORY: Cerebrovascular disease. Hypertension. None. RADIATION DOSE: 19.76 CTDI (mGy) COMPARISON: No prior exams available for comparison. TECHNIQUE: Contiguous axial images were obtained using helical multirow detector technique. The vol umetric data was post-processed with multiplanar reconstruction in oblique axial, sagittal, and coron al planes. Using automated exposure control and adjustment of the mA and/or kV according to patient s ize, radiation dose was kept as low as reasonably achievable to obtain optimal diagnostic quality jose alejandro ges. DICOM format image data is available electronically for review and comparison. The examination is moderately degraded by patient motion. FINDINGS: Cervical spine alignment appears satisfactory. No definite fracture is identified. There are degenera tive changes throughout with ventral and dorsal endplate osteophytes present at all visualized cervic al interspace levels. There is moderate posterior facet arthropathy throughout. There is mild multile claudine canal and foraminal stenosis which appears most severely involve C5-6 and 6-7 levels. There is no definite evidence of paraspinal hematoma. CONCLUSION: 1. Moderately motion degraded exam grossly negative for acute traumatic process. 2. Moderately severe degenerative changes with bony canal and foraminal compromise most significantl y in the lower cervical spine. Electronically signed by: Lavelle Kwong MD 02/18/2018 3:28 PM EDT
--- NOTE | 2018-02-18 17:50 | P.HPIM ---
History of Present Illness Primary Care Physician: UNKNOWN History of Present Illness: This patient is a 72-year-old -[place] male with a diagnosis of hypertension, diabetes mellitus type 2, dyslipidemia, peripheral arterial disease with stents in both of his lower extremities as per the patient's was at bedside with the patient. As per the patient he also has a history of TIA. At baseline the patient does not have any neurological deficits. Today the patient was at home washing the dishes when he suddenly passed out and woke up a few seconds later. The patient denies having any chest pain or palpitations prior to the episode. No tongue biting, urinary incontinence, or seizure-like activities. No history of seizures. He was then helped to his feet by his and his brother and within an hour later he had another syncopal episode in the bathroom. No complaints of chest pain, no shortness of breath, no diarrhea, no nausea or vomiting. No history of seizures or seizure- like activities during this syncopal episode. Past medical history hypertension, diabetes mellitus type 2, dyslipidemia, history of TIA, peripheral arterial disease status post stents in both of his lower extremities. 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 - Medical History Medical History: Medical History (Last Updated 02/18/18 @ 14:37 by Sheba Mijares RN) Diabetes H/O stroke within last year - Tobacco History Smoking Status: Unknown if ever smoked - Alcohol History How Often Do You Have a Drink Containing Alcohol: Unable to Obtain - Substance Use History Substance History: Unable to Obtain - Travel History Recent Travel in the [place] Within the Last 8 Weeks: No Recent Travel Out of the Country Within the Last 8 Weeks: No - Immunization History Tetanus Immunization: <5 Years Medications and Allergies Active Medications: Active Medications Sodium Chloride (Ns Inj) 1,000 mls @ 100 mls/hr IV.CONT .Q10H JAYLEN Allergies Allergy/AdvReac Type Severity Reaction Status Date / Time lisinopril AdvReac Severe Swelling Unverified 10/03/17 21:19 losartan AdvReac Intermediate Diarrhea Unverified 10/03/17 21:19 ANTIFUNGAL CREAM AdvReac Intermediate Rash Uncoded 07/16/17 23:54 Home Medications Medication Instructions Recorded Confirmed Type amlodipine 2.5 mg PO DAILY 02/18/18 02/18/18 History aspirin 81 mg PO DAILY 02/18/18 02/18/18 History atorvastatin 40 mg PO DAILY 02/18/18 02/18/18 History carvedilol [Coreg] 6.25 mg PO BID 02/18/18 02/18/18 History cetirizine [Zyrtec] 10 mg PO DAILY 02/18/18 02/18/18 History cholecalciferol (vitamin D3) 5,000 unit PO DAILY 02/18/18 02/18/18 History [Vitamin D3] clopidogrel [Plavix] 75 mg PO DAILY 02/18/18 02/18/18 History metformin 1,000 mg PO BID 02/18/18 02/18/18 History omeprazole 40 mg PO DAILY 02/18/18 02/18/18 History pioglitazone [Actos] 15 mg PO DAILY 02/18/18 02/18/18 History sertraline [Zoloft] 50 mg PO DAILY 02/18/18 02/18/18 History Exam Vital signs: Vital Signs 02/18/18 14:00 02/18/18 14:39 Pulse Rate 72 80 Respiratory Rate 16 15 Blood Pressure 112/72 156/81 H Pulse Oximetry 99 100 Intake & Output 02/17/18 02/18/18 02/18/18 18:59 06:59 18:59 Weight 72.575 kg Narrative: General patient in no acute distress HEENT extraocular movements are intact, clear oropharyngeal mucosa, no JVD Cardiovascular S1-S2 audible Respiratory clear to auscultation bilaterally Abdomen soft, nontender, nondistended, normal bowel sounds Extremities no edema 2+ distal pulses in bilateral upper and lower extremities Neuro patient can move all 4 extremities, sensation is intact bilaterally. Cerebellar signs are intact. No neurological deficits on my evaluation. Results - Labs CBC & Chem 7: 02/18/18 14:00 02/18/18 14:00 Labs: Short CBC 02/18/18 Range/Units 14:00 WBC 6.3 (4.0-11.0) th/mm3 Hgb 12.8 L (13.0-17.0) gm/dL Hct 37.9 L (39.0-51.0) % Plt Count 256 (150-450) th/mm3 BMP 02/18/18 14:00 Sodium 134 L Potassium 4.0 Chloride 99 Carbon Dioxide 30.3 BUN 16 Creatinine 1.17 Calcium 8.4 L Cardiac Enzymes 02/18/18 Range/Units 14:00 Troponin I Less than 0.02 L (0.02-0.05) ng/mL Liver Function 02/18/18 Range/Units 14:00 Total Bilirubin 0.5 (0.2-1.0) mg/dL AST 15 (15-37) U/L ALT 22 (12-78) U/L Alkaline Phosphatase 88 (45-117) U/L Albumin 3.4 (3.4-5.0) g/dL - Imaging Impressions Chest X-Ray 02/18/18 14:10 CONCLUSION: Under aerated otherwise negative Cervical Spine CT 02/18/18 14:41 CONCLUSION: 1. Moderately motion degraded exam grossly negative for acute traumatic process. 2. Moderately severe degenerative changes with bony canal and foraminal compromise most significantly in the lower cervical spine. Head CT 02/18/18 14:41 CONCLUSION: 1. No acute findings. . Caprini VTE Risk Assessment Caprini VTE Risk Assessment: Moderate/High Risk (score >= 2) Caprini Risk Assessment Model: Point Value = 1 Point Value = 2 Point Value = 3 Point Value = 5 Age 41-60 Minor surgery BMI > 25 kg/m2 Swollen legs Varicose veins or History of unexplained or recurrent spontaneous Oral contraceptives or hormone replacement Sepsis (< 1 month) Serious lung disease, including pneumonia (< 1 month) Abnormal pulmonary function Acute myocardial infarction Congestive heart failure (< 1 month) History of inflammatory bowel disease Medical patient at bed rest Age 61-74 Arthroscopic surgery Major open surgery (> 45 min) Laparoscopic surgery (> 45 min) Malignancy Confined to bed (> 72 hours) Immobilizing plaster cast Central venous access Age >= 75 History of VTE Family history of VTE Factor V Leiden Prothrombin [id number] Lupus anticoagulant Anticardiolipin antibodies Elevated serum homocysteine Heparin-induced thrombocytopenia Other congenital or acquired thrombophilia Stroke (< 1 month) Elective arthroplasty Hip, pelvis, or leg fracture Acute spinal cord injury (< 1 month) Prophylaxis Regimen: Total Risk Factor Score Risk Level Prophylaxis Regimen 0-1 Low Early ambulation 2 Moderate Order ONE of the following: *Sequential Compression Device (SCD) *Heparin 5000 units SQ BID 3-4 Higher Order ONE of the following medications: *Heparin 5000 units SQ TID *Enoxaparin/Lovenox 40 mg SQ daily (WT < 150 kg, CrCl > 30 mL/min) *Enoxaparin/Lovenox 30 mg SQ daily (WT < 150 kg, CrCl > 10-29 mL/min) *Enoxaparin/Lovenox 30 mg SQ BID (WT < 150 kg, CrCl > 30 mL/min) AND/OR *Sequential Compression Device (SCD) 5 or more Highest Order ONE of the following medications: *Heparin 5000 units SQ TID (Preferred with Epidurals) *Enoxaparin/Lovenox 40 mg SQ daily (WT < 150 kg, CrCl > 30 mL/min) *Enoxaparin/Lovenox 30 mg SQ daily (WT < 150 kg, CrCl > 10-29 mL/min) *Enoxaparin/Lovenox 30 mg SQ BID (WT < 150 kg, CrCl > 30 mL/min) AND *Sequential Compression Device (SCD) Assessment and Plan - Plan This patient is a 72-year-old -[place] male with a diagnosis of hypertension, diabetes mellitus type 2, dyslipidemia, peripheral arterial disease with stents in both of his lower extremities as per the patient's was at bedside with the patient. As per the patient he also has a history of TIA. At baseline the patient does not have any neurological deficits. Today the patient was at home washing the dishes when he suddenly passed out and woke up a few seconds later. The patient denies having any chest pain or palpitations prior to the episode. No tongue biting, urinary incontinence, or seizure-like activities. No history of seizures. He was then helped to his feet by his and his brother and within an hour later he had another syncopal episode in the bathroom. 1. Syncope possibly secondary to an arrhythmia. The patient was brought into our facility after the findings mentioned above. He was evaluated by the emergency department physician who reviewed the EKG and says that it shows left atrial enlargement as well as hypertrophy. The EKG will be evaluated by me however is currently not in our system and I do not see that the patient's bedside. Telemetry currently showing the patient is in normal sinus rhythm. CT scan of the head was done which shows a previous basal ganglial infarct however no acute findings. CT scan of the neck was also done which is not show any significant findings. A 2D echocardiogram and carotid Doppler was ordered and will be followed up. Initial cardiac enzymes and troponins are negative. We will follow up 2 more sets including EKGs. He will be started on IV fluids, a bedside swallow evaluation was ordered and once the patient passes a bedside swallow evaluation he will be started on a p.o. diet. Depending on the findings from the studies mentioned above the patient may need a loop recorder or Holter monitor to evaluate for a possible arrhythmia. I will monitor the patient's electrolytes and replace them if needed. 2. Hypertension The patient will be continued on his home medications for high blood pressure. 3. Diabetes mellitus type 2 He will be started on a low-dose insulin sliding scale, continue Accu-Cheks q. before meals and at bedtime. 4. TIA/peripheral arterial disease Continue aspirin, continue statin, continue Plavix. These medications will be started after the patient passed a swallow evaluation. Heparin for DVT prophylaxis.
[2018-02-18] MEDS ORDERED: Dextrose 50% in Water 50 ML Vial IV.PUSH PRN (20:29)
[2018-02-18] MEDS: Sod Chloride 0.9% Inj 1,000 ML IV.CONT SCH (22:06)
[2018-02-18] MEDS: Insulin NovoLOG Aspart Correctional Sugar Inj SQ SCH (22:06)
[2018-02-18] MEDS: Heparin - SQ 10,000 UNITS/ML Vial SQ SCH (22:07)
[2018-02-18] MEDS: Carvedilol 6.25 MG Tablet PO SCH (22:07)
--- NOTE | 2018-02-18 22:30 | US ---
EXAM DATE: 02/18/2018 12:00 AM EDT AGE/SEX: 72 years / Male INDICATIONS: Syncope. CLINICAL DATA: This is the patient's subsequent encounter. Patient reports that signs and symptoms h ave been present for 1 day and indicates a pain score of 0/10. MEDICAL/SURGICAL HISTORY: Hypertension. Diabetes. Hypercholesterolemia. PAD. . Bilateral lo wer extremity stents. COMPARISON: [facility] [place] CAROTID ARTERIES, 10/04/2017. . VELOCITY PARAMETERS: ICA/CCA Ratio: Right 0.8 , Left 0.7 ICA: Right 54 cm/sec, Left 55 cm/sec CCA: Right 68 cm/sec, Left 80 cm/sec ECA: Right 67 cm/sec, Left 99 cm/sec Vertebral: Right 53 cm/sec antegrade, Left 40 cm/sec antegrade FINDINGS: Right Carotid: Mild arteriosclerotic plaque is visualized.The waveforms are within normal limits. Left Carotid: Mild arteriosclerotic plaque is visualized. The waveforms are within normal limits. Other: None. CONCLUSION: 1. Right Internal Carotid Artery: Mild plaque without significant stenosis. 2. Left Internal Carotid Artery: Mild plaque without significant stenosis. Electronically signed by: Avtar Graves MD 02/18/2018 10:29 PM EDT
[2018-02-19] MEDS: Sod Chloride 0.9% Inj 1,000 ML IV.CONT SCH ×2 (06:11→18:50)
[2018-02-19 06:31] LABS: Amphetamine Screen,Urine Neg (Neg); Barbiturate Screen,Urine Neg (Neg); Cannabinoid Screen,Urine Neg (Neg); Cocaine Screen,Urine Neg (Neg)
[2018-02-19 06:33] LABS: Opiate Screen,Urine Neg (Neg)
[2018-02-19 08:04] LABS: Anion Gap 5 meq/L (5-15); Blood Urea Nitrogen 15 mg/dL (7-18); Calcium 8.5 mg/dL (8.5-10.1); Carbon Dioxide 29.6 meq/L (21.0-32.0); Chloride 100 meq/L (98-107); Glomerular Filtration Rate Greater Than 89 mL/min (>89); Glucose,Random 165 mg/dL (74-106); Potassium 3.9 meq/L (3.5-5.1); Sodium 135 meq/L (136-145)
[2018-02-19] MEDS: Heparin - SQ 10,000 UNITS/ML Vial SQ SCH ×2 (08:32→22:21)
[2018-02-19] MEDS: Sertraline 50 MG Tablet PO SCH (08:33)
[2018-02-19] MEDS: Carvedilol 6.25 MG Tablet PO SCH ×2 (08:33→22:20)
[2018-02-19] MEDS ORDERED: amLODIPine 5 MG Tablet PO SCH (09:00)
[2018-02-19] MEDS: Insulin NovoLOG Aspart Correctional Sugar Inj SQ SCH ×4 (09:43→22:21)
--- NOTE | 2018-02-19 11:57 | P.PNIM ---
Subjective Interval history: Patient is in no acute distress. Denies having any significant episodes of dizziness, palpitations overnight. He appears comfortable and is tolerating a p.o. diet. Physical Exam Vital signs: Vital Signs 02/18/18 14:00 02/18/18 14:39 02/18/18 19:55 Temperature 98.8 F Pulse Rate 72 80 99 H Respiratory Rate 16 15 20 Blood Pressure 112/72 156/81 H 174/96 H Pulse Oximetry 99 100 99 02/19/18 00:00 02/19/18 04:00 02/19/18 07:40 Temperature 98.6 F 98.4 F 97.7 F Pulse Rate 80 81 81 Respiratory Rate 17 18 16 Blood Pressure 154/66 H 172/82 H 194/92 H Pulse Oximetry 99 99 97 02/19/18 07:41 02/19/18 11:43 Temperature 97.7 F Pulse Rate 82 80 Respiratory Rate 16 16 Blood Pressure 178/80 H 186/91 H Pulse Oximetry 98 98 Intake & Output 02/18/18 02/19/18 02/19/18 18:59 06:59 18:59 Intake Total 1240 / 1240 Balance 1240 / 1240 Weight 72.575 kg 68.946 kg Intake: IV 1000 / 1000 NS Inj 1,000 ML @ 100 mls/hr IV 1000 / 1000 .CONT .Q10H JAYLEN Rx#:[id number] Oral 240 / 240 Other: # Voids 1 Date of Last Bowel Movement 02/18/18 Weight On Admission 72.575 kg Narrative: General patient in no acute distress HEENT extraocular movements are intact, clear oropharyngeal mucosa, no JVD Cardiovascular S1-S2 audible Respiratory clear to auscultation bilaterally Abdomen soft, nontender, nondistended, normal bowel sounds Extremities no edema 2+ distal pulses in bilateral upper and lower extremities Neuro patient can move all 4 extremities, sensation is intact bilaterally. Cerebellar signs are intact. No neurological deficits on my evaluation. Results - Labs CBC & Chem 7: 02/18/18 14:00 02/19/18 06:54 Laboratory Results - last 24 hr 02/18/18 02/18/18 02/18/18 14:00 14:00 20:50 WBC 6.3 RBC 4.21 L Hgb 12.8 L Hct 37.9 L MCV 89.9 MCH 30.3 MCHC 33.7 RDW 15.0 Plt Count 256 MPV 8.7 Neut % (Auto) 51.6 Lymph % (Auto) 36.2 [place] % (Auto) 8.7 H Eos % (Auto) 3.0 Baso % (Auto) 0.5 Neut # (Auto) 3.3 Lymph # (Auto) 2.3 [place] # (Auto) 0.5 Eos # (Auto) 0.2 Baso # (Auto) 0.0 WBC Differential . Differential Comment Auto diff final Sodium 134 L Potassium 4.0 Chloride 99 Carbon Dioxide 30.3 Anion Gap 5 BUN 16 Creatinine 1.17 Estimated GFR 75 L POC Glucose 179 H Random Glucose 173 H Calcium 8.4 L Total Bilirubin 0.5 AST 15 ALT 22 Alkaline Phosphatase 88 Troponin I Less than 0.02 L Total Protein 6.7 Albumin 3.4 Urine Opiates Screen Ur Barbiturates Screen Ur Amphetamines Screen U Benzodiazepines Scrn Urine Cocaine Screen U Cannabinoids Screen 02/18/18 02/19/18 02/19/18 22:09 06:05 06:54 WBC RBC Hgb Hct MCV MCH MCHC RDW Plt Count MPV Neut % (Auto) Lymph % (Auto) [place] % (Auto) Eos % (Auto) Baso % (Auto) Neut # (Auto) Lymph # (Auto) [place] # (Auto) Eos # (Auto) Baso # (Auto) WBC Differential Differential Comment Sodium 135 L Potassium 3.9 Chloride 100 Carbon Dioxide 29.6 Anion Gap 5 BUN 15 Creatinine 0.83 Estimated GFR Greater than 89 POC Glucose Random Glucose 165 H Calcium 8.5 Total Bilirubin AST ALT Alkaline Phosphatase Troponin I Less than 0.02 L Less than 0.02 L Total Protein Albumin Urine Opiates Screen Neg Ur Barbiturates Screen Neg Ur Amphetamines Screen Neg U Benzodiazepines Scrn Neg Urine Cocaine Screen Neg U Cannabinoids Screen Neg 02/19/18 08:30 WBC RBC Hgb Hct MCV MCH MCHC RDW Plt Count MPV Neut % (Auto) Lymph % (Auto) [place] % (Auto) Eos % (Auto) Baso % (Auto) Neut # (Auto) Lymph # (Auto) [place] # (Auto) Eos # (Auto) Baso # (Auto) WBC Differential Differential Comment Sodium Potassium Chloride Carbon Dioxide Anion Gap BUN Creatinine Estimated GFR POC Glucose 187 H Random Glucose Calcium Total Bilirubin AST ALT Alkaline Phosphatase Troponin I Total Protein Albumin Urine Opiates Screen Ur Barbiturates Screen Ur Amphetamines Screen U Benzodiazepines Scrn Urine Cocaine Screen U Cannabinoids Screen - Imaging Impressions Carotid Doppler Study 02/18/18 00:00 CONCLUSION: 1. Right Internal Carotid Artery: Mild plaque without significant stenosis. 2. Left Internal Carotid Artery: Mild plaque without significant stenosis. Chest X-Ray 02/18/18 14:10 CONCLUSION: Under aerated otherwise negative Cervical Spine CT 02/18/18 14:41 CONCLUSION: 1. Moderately motion degraded exam grossly negative for acute traumatic process. 2. Moderately severe degenerative changes with bony canal and foraminal compromise most significantly in the lower cervical spine. Head CT 02/18/18 14:41 CONCLUSION: 1. No acute findings. . Assessment and Plan - Plan This patient is a 72-year-old -[place] male with a diagnosis of hypertension, diabetes mellitus type 2, dyslipidemia, peripheral arterial disease with stents in both of his lower extremities as per the patient's was at bedside with the patient. As per the patient he also has a history of TIA. At baseline the patient does not have any neurological deficits. Today the patient was at home washing the dishes when he suddenly passed out and woke up a few seconds later. The patient denies having any chest pain or palpitations prior to the episode. No tongue biting, urinary incontinence, or seizure-like activities. No history of seizures. He was then helped to his feet by his and his brother and within an hour later he had another syncopal episode in the bathroom. 1. Syncope possibly secondary to an arrythmia Patient has had no episodes of chest pain, palpitations, or dizziness. Telemetry was evaluated which is not show any significant events. EKG shows normal sinus rhythm no acute ST segment or T wave changes. CT scan of the head and neck is negative for any acute findings. 2D echocardiogram was ordered and is pending Imaging of the carotids is negative for any significant stenosis. Patient is tolerating a p.o. diet. I will follow-up on the 2D echocardiogram and continue to monitor the patient on telemetry. If there are no significant events on telemetry and the patient is not expensing any symptoms he will likely be ready to be discharged tomorrow. 2. Hypertension The patient's dose of amlodipine will be increased to 10 mg daily. He will also be started on hydralazine. 3. Diabetes mellitus type 2 He will be started on a low-dose insulin sliding scale, continue Accu-Cheks q. before meals and at bedtime. 4. TIA/peripheral arterial disease Continue aspirin, continue statin, continue Plavix. These medications will be started after the patient passed a swallow evaluation. Heparin for DVT prophylaxis.
--- NOTE | 2018-02-19 12:23 | ECHRPT ---
Indication: SYNCOPE CONCLUSIONS Normal left ventricular size. Wall thickness is normal. The left ventricular systolic function is low normal with an estimated ejection fraction of 50%. No definite regional wall motion abnormalities. Trace mitral valve regurgitation. There is trace tricuspid valve regurgitation. Mild thickening of the aortic valve leaflets. No aortic stenosis. Trace aortic regurgitation. BP: / HR: Rhythm: MEASUREMENTS (Male / Female) Normal Values Technical Quality: 2D ECHO LV Diastolic Diameter PLAX 4.3 cm 4.2 - 5.9 / 3.9 - 5.3 cm LV Systolic Diameter PLAX 3.1 cm IVS Diastolic Thickness 0.8 cm 0.6 - 1.0 / 0.6 - 0.9 cm LVPW Diastolic Thickness 1.0 cm 0.6 - 1.0 / 0.6 - 0.9 cm LV Relative Wall Thickness 0.4 RV Internal Dim ED PLAX 2.2 cm LVOT Diameter 1.5 cm Aortic Root Diameter 2.3 cm LA Systolic Diameter LX 3.7 cm 3.0 - 4.0 / 2.7 - 3.8 cm M-MODE AV Cusp Separation MM 1.5 cm DOPPLER AV Peak Velocity 138.0 cm/s AV Peak Gradient 7.6 mmHg AV Mean Gradient 4.0 mmHg AV Velocity Time Integral 31.3 cm LVOT Peak Velocity 86.8 cm/s LVOT Peak Gradient 3.0 mmHg LVOT Velocity Time Integral 20.0 cm AV Area Cont Eq vti 1.1 cm AV Area Cont Eq pk 1.1 cm Mitral E Point Velocity 96.0 cm/s Mitral A Point Velocity 138.0 cm/s Mitral E to A Ratio 0.7 LV E' Lateral Velocity 5.6 cm/s Mitral E to LV E' Lateral Ratio 17.3 LV E' Septal Velocity 5.4 cm/s Mitral E to LV E' Septal Ratio 17.7 TR Peak Velocity 238.0 cm/s TR Peak Gradient 22.7 mmHg Right Atrial Pressure 10.0 mmHg Pulmonary Artery Systolic Pressu 32.7 mmHg Right Ventricular Systolic Press 32.7 mmHg PV Peak Velocity 92.7 cm/s PV Peak Gradient 3.4 mmHg FINDINGS LEFT VENTRICLE Normal left ventricular size. Wall thickness is normal. The left ventricular systolic function is low normal with an estimated ejection fraction of 50%. No definite regional wall motion abnormalities. RIGHT VENTRICLE The right ventricular size is normal. LEFT ATRIUM The left atrial size is normal. RIGHT ATRIUM The right atrial size is normal. ATRIAL SEPTUM Normal atrial septal thickness without atrial level shunting by limited color doppler interrogation. AORTA The aortic root and proximal ascending aorta are normal in size on limited imaging. MITRAL VALVE Structurally normal mitral valve. Trace mitral valve regurgitation. AORTIC VALVE Mild thickening of the aortic valve leaflets. No aortic stenosis. Trace aortic regurgitation. TRICUSPID VALVE There is trace tricuspid valve regurgitation. PULMONARY VALVE No pulmonary valve regurgitation or stenosis. VESSELS The inferior vena cava is normal in size. PERICARDIUM No pericardial effusion. Dalton Bowden MD (Electronically Signed) Final Date:19 February 2018 12:23
[2018-02-19] MEDS: hydrALAZINE 10 MG Tablet PO SCH ×2 (18:48)
--- NOTE | 2018-02-19 20:44 | ECG ---
Date Performed: 02/18/2018 Time Performed: 13:55:59 PTAGE: 72 years EKG: Sinus rhythm POSSIBLE LEFT ATRIAL ENLARGEMENT ABNORMAL ECG PREVIOUS TRACING : 10/03/2017 21.31 Since the previous tracing, no significant change noted DOCTOR: Luiz Glover Interpretating Date/Time 02/19/2018 20:43:33
[2018-02-20] MEDS: Sod Chloride 0.9% Inj 1,000 ML IV.CONT SCH (03:58)
[2018-02-20 07:48] VITALS: PULSE 82
[2018-02-20] MEDS: Carvedilol 6.25 MG Tablet PO SCH (08:30)
[2018-02-20] MEDS: hydrALAZINE 10 MG Tablet PO SCH (08:30)
[2018-02-20] MEDS: Sertraline 50 MG Tablet PO SCH (08:30)
[2018-02-20] MEDS: Heparin - SQ 10,000 UNITS/ML Vial SQ SCH (08:31)
[2018-02-20] MEDS ORDERED: amLODIPine 5 MG Tablet PO ONE (09:00)
[2018-02-20] MEDS: Insulin NovoLOG Aspart Correctional Sugar Inj SQ SCH (09:42)
[2018-02-20] MEDS ORDERED: hydrALAZINE 25 MG Tablet PO SCH (10:00)
[2018-02-20 10:17] VITALS: BP 128/67; RESP 16; TEMP 98.4; O2SAT 99
--- NOTE | 2018-02-20 11:46 | P.DS ---
Date of admission: 02/18/18 16:24 Primary care physician: UNKNOWN Brief History from admission: This patient is a 72-year-old -Citizen Of [place] male with a diagnosis of hypertension, diabetes mellitus type 2, dyslipidemia, peripheral arterial disease with stents in both of his lower extremities as per the patient's was at bedside with the patient. As per the patient he also has a history of TIA. At baseline the patient does not have any neurological deficits. Today the patient was at home washing the dishes when he suddenly passed out and woke up a few seconds later. The patient denies having any chest pain or palpitations prior to the episode. No tongue biting, urinary incontinence, or seizure-like activities. No history of seizures. He was then helped to his feet by his and his brother and within an hour later he had another syncopal episode in the bathroom. No complaints of chest pain, no shortness of breath, no diarrhea, no nausea or vomiting. No history of seizures or seizure- like activities during this syncopal episode. DS: Medications - Discharge Medications Prescriptions: amlodipine 10 mg PO DAILY #30 tab hydralazine 10 mg PO TID #90 tab DS: Summary Hospital Course: This patient is a 72-year-old -Citizen Of [place] male with a diagnosis of hypertension, diabetes mellitus type 2, dyslipidemia, peripheral arterial disease with stents in both of his lower extremities as per the patient's was at bedside with the patient. As per the patient he also has a history of TIA. At baseline the patient does not have any neurological deficits. The patient was at home washing the dishes when he suddenly passed out and woke up a few seconds later. The patient denies having any chest pain or palpitations prior to the episode. No tongue biting, urinary incontinence, or seizure-like activities. No history of seizures. He was then helped to his feet by his and his brother and within an hour later he had another syncopal episode in the bathroom. 1. Syncope possibly secondary dehydration Patient was evaluated in the emergency department. An EKG was done which showed normal sinus rhythm and no acute ST segment or T wave changes. Troponins were negative. Serum creatinine was within normal limits however did downtrend to 0.8 after the initiation of IV fluids. He was continued on IV fluids throughout the hospitalization. Ultrasound of carotids was done which did not show any significant stenosis of the right or left carotid artery. CT scan of the head and neck were done which did not show any acute findings. 2D echocardiogram was also done which did not show any significant findings, ejection fraction 50%. Patient passed a bedside swallow evaluation and was started on a p.o. diet. He did not have any other symptoms while he was in the hospital. He was continuously monitor on telemetry and the telemetry does not show any significant events concerning for an arrhythmia. He is ambulated without any difficulties and feels like he is back to his baseline. Patient was advised to stay hydrated while at home. If he has another presyncopal or syncopal episode he needs to seek immediate medical attention. There is no previous history of the patient having presyncope or syncopal episode. 2. Hypertension The patient's dose of amlodipine was increased to 10 mg daily. He was also be started on hydralazine. Patient was advised to check his blood pressures at home and present a blood pressure log to his primary care physician. 3. Diabetes mellitus type 2 Patient was advised to continue taking his home dose medications for diabetes. 4. TIA/peripheral arterial disease Continue aspirin, continue statin, continue Plavix. - Time Spent with Patient Total time spent providing and/or coordinating discharge services: Greater than 30 minutes - Quality: VTE Deep Vein Thrombosis/Pulmonary Embolism Present on Admission: No Exam Vital signs: Vital Signs 02/19/18 11:43 02/19/18 16:00 02/19/18 20:00 Temperature 97.7 F 98.6 F 98.8 F Pulse Rate 80 86 78 Respiratory Rate 16 16 18 Blood Pressure 186/91 H 164/89 H 158/80 H Pulse Oximetry 98 97 97 02/19/18 23:53 02/20/18 03:18 02/20/18 07:45 Temperature 98.6 F 97.8 F 97.9 F Pulse Rate 80 73 82 Respiratory Rate 18 18 12 Blood Pressure 155/82 H 182/89 H 192/88 H Pulse Oximetry 100 100 100 02/20/18 08:00 02/20/18 10:17 Temperature 98.4 F 98.4 F Pulse Rate 82 82 Respiratory Rate 16 16 Blood Pressure 128/67 128/67 Pulse Oximetry 99 99 Intake & Output 02/19/18 02/20/18 02/20/18 18:59 06:59 18:59 Other: # Voids 2 Narrative: General patient in no acute distress HEENT extraocular movements are intact, clear oropharyngeal mucosa, no JVD Cardiovascular S1-S2 audible Respiratory clear to auscultation bilaterally Abdomen soft, nontender, nondistended, normal bowel sounds Extremities no edema 2+ distal pulses in bilateral upper and lower extremities Neuro patient can move all 4 extremities, sensation is intact bilaterally. Cerebellar signs are intact. No neurological deficits on my evaluation. Results Procedures completed during hospitalization: None Labs on day of discharge: Labs from last 24 hours 02/20/18 02/19/18 02/19/18 08:28 22:09 18:44 POC Glucose 170 H 174 H 158 H 02/19/18 13:46 POC Glucose 264 H - Impressions ITS Impressions Carotid Doppler Study 02/18/18 00:00 CONCLUSION: 1. Right Internal Carotid Artery: Mild plaque without significant stenosis. 2. Left Internal Carotid Artery: Mild plaque without significant stenosis. Chest X-Ray 02/18/18 14:10 CONCLUSION: Under aerated otherwise negative Cervical Spine CT 02/18/18 14:41 CONCLUSION: 1. Moderately motion degraded exam grossly negative for acute traumatic process. 2. Moderately severe degenerative changes with bony canal and foraminal compromise most significantly in the lower cervical spine. Head CT 02/18/18 14:41 CONCLUSION: 1. No acute findings. . Discharge Plan - Discharge Disposition Patient Disposition: 01 Discharge Home - Discharge Condition Condition: Good - Discharge Order Discharge Orders: Discharge Order (Routine); Ordered 02/20/18 Ordered By: Bella Yanez - Physicians Team Primary Care Provider: UNKNOWN, Attending Provider: Bella Yanez Other Providers: Brandona,Brandona
== END 2018-02-20 13:07 | disposition home or self-care (01) ==
LOC: NEPE 13:53 → NEDA 13:53 → NEPGCP 19:00
PROVIDERS: ADMIT Hospitalist; ATTEND Hospitalist